=== PATIENT | male | born 1970 | race Caucasian/White ===

== ENCOUNTER → 2017-11-28 | Outpatient (CLI) | payer OTHER ==
[~2017-11-28] VITALS: Ht 175.3 cm; Wt 95.3 kg
[~2017-11-28] MED LIST: ALLERGY10 M1 PO; ATACAND HCT 321 EACH PO; ATACAND PO; AVINZA 90 MG CA90 MG PO; CARVEDILOL6.25 MG PO; CLARITIN-D 12 H1 TAB PO; CRESTOR40 MG PO; CRESTOR5 MG PO; ENDOCET 10-3251 EACH PO; FLONASE 0.05%50 MCG NASAL; LIPOFLAVONOID1 EACH PO; NEURONTIN 300M300 M2 PO; PERCOCET 10-321 EACH PO; PERCOCET 7.5-31 EACH PO; VERAMYST10 GM NS
--- NOTE | ~2017-11-28 | HPC ---
[facility] [place] [address] PAIN MANAGEMENT CONSULTATION Name: BILL RICKETTS Room #: REG WILFREDOKimberly Okeefe#: [id number] Admission: 11/28/17 Attend Phys: Hair Townsend MD Discharge: Date of : 68 Report #: [id number] THIS REPORT FOR: //name// CC: Hair Munson DATE OF SERVICE: 11/28/2017 CHIEF COMPLAINT: Pain in the low back area with numbness and fire in my left foot. HISTORY OF PRESENT ILLNESS: The patient is a 47-year-old gentleman who has returned to the pain clinic for treatment. The patient has had some problems with his low back. He has returned to his neurosurgeon. At this juncture, no truly good surgical procedure is available. His surgeon has requested that he continued to try to maintain his pain control as conservative as possible at this juncture. He has had a multitude of life experiences since we saw him about 8 years ago. He is . He has had some tragedies in his life where a number of people have . 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 He has had some health issues. He does have an aortic aneurysm about 4.2 cm, has had pain and discomfort involving his left foot, which radiates down into his foot and feels like fire. He has had an MRI with changes noting an anterolisthesis of about 11 mm. He has returned to the pain clinic for medications as well as for a procedure. Feels that an epidural steroid injection might be beneficial and would like to proceed with such. ALLERGIES: PENICILLIN. CURRENT MEDICATIONS: Flonase 0.05%, cetirizine 10 mg, ____ capsules. PAST MEDICAL HISTORY: Aortic aneurysm 4.2 cm, left foot pain with lumbar radiculopathy L4-L5 distribution, knee surgeries. 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 REVIEW OF SYSTEMS: Generally good health, eye injury, heart trouble. PAIN CLINIC ASSESSMENT: 1. History of osteoarthritis involving his right lower extremity. History of rheumatoid arthritis, not applicable. 2. Height 5 feet 9 inches, weight 210 pounds, BMI is 31. 3. Vital signs: Blood pressure 133/91, pulse 83, respiratory rate is 16, room air saturation 98%. 4. Pain intensity waxes and wanes between 5-6. 5. Fall history: The patient has not fallen. 6. Blood thinner. The patient is not on a blood thinning medication. [facility] [address] [place] [address] PAIN MANAGEMENT CONSULTATION Name: BILL RICKETTS Room #: REG [facility]#: [id number] Admission: 11/28/17 Attend Phys: Hair Townsend MD Discharge: Date of : 68 Report #: [id number] 7. Hypertension. The patient has been treated for hypertension in the past. 8. Opioid therapy greater than 6 weeks. The patient is not on opioid therapy. 9. Functional assessment tool . 10. Recreational drug use. The patient denies use of recreational drug use at this juncture. 11. Smoking. The patient has never smoked. 12. Alcohol: The patient denies frequent use of alcoholic beverages. PHYSICAL EXAMINATION: GENERAL: The patient is a well-developed, well-nourished white male. Appears his stated age. He is alert and oriented x 3. Affect is appropriate. HEENT: Normocephalic, atraumatic. Extraocular muscles intact. The patient has had some eye surgeries in the past. Mucous membranes are moist. NECK: Without JVD or adenopathy. Good range of motion. HEART: Regular rate. S1, S2. LUNGS: Clear to auscultation, lumbosacral without significant scoliosis, kyphosis or lordosis. The patient has pain and discomfort, which radiates down into the left leg within the L4-L5 distribution with a "fiery sensation." Notes some weakness. Has slight antalgic gait, goes from a sitting to a standing position with use of his hands. IMPRESSION: 1. Worsening of his lumbar radicular pain with pain radiating in the L5 distribution. 2. Aortic aneurysm 4.2 cm. 3. Left foot pain with lumbar radiculopathy L4-L5 distribution. 4. Knee surgeries. RECOMMENDATIONS: We discussed treatment options with the patient. Risks and benefits of an epidural steroid injection were discussed. Possible complications of the procedure were reviewed. The patient would like to proceed. At this juncture, the patient has not tried the gabapentin medication. We will start him on gabapentin 300 mg 1 p.o. t.i.d. He will slowly increase his medication as he is able to tolerate it. The patient will be given Percocet 7.5 mg 1 tablet p.o. b.i.d. He will return to the pain clinic and proceed an epidural steroid injection after his insurance company okays this. We would like to thank you for letting us participate in his care. We hope he continues to improve. By: [id number] Hair Townsend MD /samantha
[2017-11-28 09:12] VITALS: BP 133/91
== END ==
LOC: PAIN 07:29
DX: M54.16 Radiculopathy, lumbar region (principal); I71.9 Aortic aneurysm of unspecified site, without rupture; M79.672 Pain in left foot

== ENCOUNTER → 2018-01-09 | Outpatient (CLI) | payer OTHER ==
[~2018-01-09] VITALS: Ht 175.3 cm; Wt 97.2 kg
[~2018-01-09] MED LIST changes: +AMITRIPTYLINE H25 M2 PO; +NEURONTIN 300300 M1 PO; +ZANAFLEX4 MG PO
--- NOTE | ~2018-01-09 | HPC ---
[facility] [address] [address] PAIN MANAGEMENT CONSULTATION Name: BILL RICEKTTS Room #: REG JANAE Maldonado#: [id number] Admission: 01/09/18 Attend Phys: Hair Townsend MD Discharge: Date of : 68 Report #: [id number] THIS REPORT FOR: //name// CC: Hair Munson DATE OF SERVICE: 01/09/2018 PRIMARY CARE PHYSICIAN: Cecilio Munson MD HISTORY: Here for an epidural injection. FOLLOWUP HISTORY: The patient is a 47-year-old gentleman who has been followed in the pain clinic because of chronic pain. He has undergone an epidural steroid injection in the past. He has gleaned benefits from these. He does continue to have pain and discomfort, which is quite problematic. He has noticed worsening of his pain and rates it as about an 8/10. He has been working long hours, up to about 80 hours a week. Because of that, he has noted some worsening and crescendo of his pain. He has returned to the pain clinic for an injection. We have checked with his insurance. He has new insurance, but it is not in effect at this juncture. We will contact his insurance company at which time after they get the approval, we will proceed with an epidural steroid injection. These have provided greater than 50% improvement in his pain in the past. It involves the L4-L5 area on the left. He has found that this has been beneficial. Finds that his medications are helpful. They have not been as helpful as he would like. We will proceed with another script for oxycodone 10 mg 1 p.o. q.i.d. The patient and I have had a discussion regarding the use of opioid medications. He is aware of the possible complications of opioids, which could be dependence as well as less effectiveness secondary to tolerance. He would like to proceed with another injection as soon as his insurance company will allow. ALLERGIES: PENICILLIN. CURRENT MEDICATIONS: Flonase, cetirizine 10 mg, gabapentin 300 mg, takes 600 mg b.i.d., Zanaflex 4 mg t.i.d., multivitamin, Flonase 0.05% nasal spray. PAIN CLINIC ASSESSMENT/PQRS: 1. Osteoarthritis. The patient is not being treated for osteoarthritis. He has not been treated for rheumatoid arthritis. 2. Height 5 feet 9 inches, weight 214 pounds, BMI is 31.6. 3. Vital signs: Blood pressure 149/89, pulse 80, respiratory rate 16, room air saturation 97%. 4. Pain intensity 10. 5. Fall risk. The patient has not fallen in the last 3 months. 6. Blood thinner. The patient is not on a blood thinning medication. [address] [address] PAIN MANAGEMENT CONSULTATION Name: BILL RICKETTS [id number] Admission: 01/09/18 Attend Phys: Hair Townsend MD Discharge: Date of : 68 Report #: [id number] 7. Hypertension. The patient is being treated for hypertension. 8. Opioid therapy greater than 6 weeks. The patient is receiving medication from one source, the pain clinic. 9. Risk assessment tool, moderate risk status. 10. Functional assessment tool . 11. Recreational drug use. The patient denies use of recreational drugs. 12. Tobacco: The patient has never smoked. 13. Alcohol: The patient denies use of alcoholic beverages. PHYSICAL EXAMINATION: GENERAL: The patient is a well-developed, well-nourished white male. Appears his stated age. He is alert and oriented x 3. His affect is appropriate. Speech is fluent. HEENT: Normocephalic, atraumatic. Extraocular eye muscles intact. Sclerae nonicteric. Mucous membranes are moist. The patient has some disconjugate gaze secondary to the previous eye surgeries. NECK: JVD without adenopathy. Good range of motion. HEART: Regular rate. S1, S2. LUNGS: Clear to auscultation without rhonchi or rales. MUSCULOSKELETAL: Without significant scoliosis, kyphosis or lordosis. The patient does have some pain and discomfort, which is radiating down into his left leg in the L4-L5 distribution and describes as a fiery sensation down into his feet. The patient has some weakness in the left leg, walks with an antalgic gait because of the pain. Notes that the pain is worse when he goes from a sitting to a standing position and uses his hands to go from a sitting position to a standing position from the chair. IMPRESSION: 1. Worsening of lumbar radicular pain with radiation down the L5 distribution. 2. Aortic aneurysm, 4.2 being watched by his physician. 3. Left foot and lumbar radiculopathy, L4-L5. 4. Knee surgeries. RECOMMENDATIONS: We discussed treatment options with the patient. Risks and benefits of an epidural steroid injection were again reviewed. Possible complications were discussed. The patient has some new insurance company and carrier. At this juncture, he is waiting for approval. After he gets approval from the company, he will then undergo an epidural steroid injection. The patient gleans greater than 50% improvement after the injection. A script for oxycodone 10 mg 1 p.o. q.i.d. has been written. We would like to thank you for letting us participate in his care. We hope he continues to improve. <ELECTRONICALLY SIGNED> By: Hair Townsend MD 01/21/18 [id number] Hair Townsend MD /[facility]
[2018-01-09 10:56] VITALS: BP 149/89
== END ==
LOC: PAIN 06:55
DX: M54.16 Radiculopathy, lumbar region (principal); I71.9 Aortic aneurysm of unspecified site, without rupture; M79.672 Pain in left foot; Z47.1 Aftercare following joint replacement surgery; Z79.899 Other long term (current) drug therapy

== ENCOUNTER → 2018-01-23 | Outpatient (CLI) | payer OTHER ==
[~2018-01-23] VITALS: Ht 175.3 cm; Wt 95.3 kg
[2018-01-23 14:03] VITALS: BP 133/85
== END | disposition home or self-care (01) ==
LOC: PAIN 07:20
DX: M54.16 Radiculopathy, lumbar region (principal); G89.29 Other chronic pain; Z88.0 Allergy status to penicillin; Z79.899 Other long term (current) drug therapy

== ENCOUNTER → 2018-02-15 | Outpatient (CLI) | payer OTHER ==
[~2018-02-15] VITALS: Ht 175.3 cm; Wt 95.5 kg
--- NOTE | ~2018-02-15 | HPC ---
[facility] [place] [address] [place] [address] PAIN MANAGEMENT CONSULTATION Name: BILL RICKETTS Room #: REG JNAAE Jennifer.#: [id number] Admission: 02/15/18 Attend Phys: Hair Townsend MD Discharge: Date of : 68 Report #: [id number] THIS REPORT FOR: //name// CC: Hair Munson DATE OF SERVICE: 02/15/2018 PRIMARY CARE PHYSICIAN: Cecilio Munson MD FOLLOWUP. Pain is improved since the last injection. HISTORY: The patient is a 47-year-old gentleman who has been followed in the pain clinic because of lumbar radiculopathy. He has undergone epidural steroid injections. He received some benefit from the first injection and the second injection, which he received at his last visit, has been more helpful. He is having less pain and rates his pain at this juncture as a 4/5. There were no complications from the injections. Does still have some pain radiating down his left leg into his foot and has some burning discomfort involving the left leg and foot. He was being treated with gabapentin. We did try Gralise (slow release medication of gabapentin), but the patient did not find significant benefit from that. He would like to resume his use of traditional gabapentin. He has continued to exercises as he is able to tolerate it. Denies any bowel or bladder dysfunction. ALLERGIES: PENICILLIN. CURRENT MEDICATIONS: Flonase, cetirizine 10 mg, gabapentin 300 mg a.m., 600 mg t.i.d., Flexeril, tizanidine 4 mg t.i.d., multivitamin, Flonase 0.5 mg nasal spray. PAIN CLINIC ASSESSMENT/PQRS: 1. Osteoarthritis. The patient has not been treated for rheumatoid arthritis. 2. Height 5 feet 9 inches, weight 210 pounds, BMI is 31.1. 3. Vital signs: Blood pressure 132/89, pulse 81, respiratory rate 18, room air saturation 95%. 4. Pain intensity 4/5 out of 10. 5. Fall risk. The patient has not fallen in the last 3 months. 6. Blood thinner. The patient is not on a blood thinning medication. 7. Hypertension. The patient is not being treated for hypertension. 8. Opioid greater than 6 weeks. The patient is receiving his medication from one source, the pain clinic. 9. Risk assessment tool, moderate risk for opioid use 09/12. 10. Functional assessment tool . 11. Recreational drug use. The patient denies use of recreational drugs. 12. Tobacco. [place] [address] PAIN MANAGEMENT CONSULTATION Name: BILL RICKETTS Room #: REG [facility] Emerson.#: [id number] Admission: 02/15/18 Attend Phys: Hair Townsend MD Discharge: Date of : 68 Report #: [id number] 13. Alcohol: The patient denies use of alcoholic beverages. PHYSICAL EXAMINATION: GENERAL: The patient is a well-developed, well-nourished white male. Appears his stated age. He is alert and oriented x 3. His affect is appropriate. Speech is fluent. HEENT: Normocephalic, atraumatic. Extraocular eye muscles intact. Sclerae nonicteric. Mucous membranes are moist. NECK: Without JVD or adenopathy, good range of motion. HEART: Regular rate. S1, S2. LUNGS: Clear to auscultation without rhonchi or rales. MUSCULOSKELETAL: Without significant scoliosis, kyphosis or lordosis. The patient does have some pain and discomfort in his left leg that radiates down the L4-L5 distribution with a fiery sensation in his foot and down into his toe. Notes some weakness in his left leg. Continues to have some slight antalgic walk. Gait has improved since the last injection. The patient uses hands to go from sitting to a standing position from the chair. IMPRESSION: 1. Lumbar radiculopathy in the L4-L5 distribution. 2. Aortic aneurysm 4.2 cm being actively watched and monitored by his physician. 3. Left foot lumbar radicular pain in the L4-L5 distribution. 4. Knee surgeries. RECOMMENDATIONS: We discussed treatment options with the patient. At this juncture, we will continue with his current medical regimen. A script for medications of gabapentin 300 mg 1 p.o. t.i.d. has been written. The patient will take an additional tablet in the morning for a total of 600, 300 and 300, amitriptyline 25 mg 2 tablets p.o. at bedtime, tizanidine 4 mg t.i.d., oxycodone 10/325 one p.o. q.6 hours p.r.n., total of 75 tablets have been dispensed. The patient will call us if he has any concerns. We would like to thank you for letting us participate in his care. We hope he continues to improve. By: [id number] Hair Townsend MD /ALAN
[2018-02-15 09:45] VITALS: BP 132/89
== END ==
LOC: PAIN 06:48
DX: M54.16 Radiculopathy, lumbar region (principal); I71.9 Aortic aneurysm of unspecified site, without rupture; Z96.659 Presence of unspecified artificial knee joint

== ENCOUNTER → 2018-03-15 | Outpatient (CLI) | payer OTHER ==
[~2018-03-15] VITALS: Ht 175.3 cm; Wt 92.8 kg
--- NOTE | ~2018-03-15 | HPC ---
[facility] [address] [place] [address] PAIN MANAGEMENT CONSULTATION Name: BILL RICKETTS Room #: REG JANAE CaseJarethKirkJareth#: [id number] Admission: 03/15/18 Attend Phys: Hair Townsend MD Discharge: Date of : 68 Report #: [id number] THIS REPORT FOR: //name// CC: Hair Munson DATE OF SERVICE: 03/15/2018 CHIEF COMPLAINT: Here for medication renewal, still having pain in the left hip and down into the foot. HISTORY OF PRESENT ILLNESS: The patient is a 47-year-old gentleman who has been followed in the pain clinic because of onset of pain and discomfort. He has had a history of lumbar radiculopathy in the past. A few months ago, he noticed some worsening of pain and this has been quite problematic. He has returned today for renewal of his medication. He has found that epidural steroid injections as well as gabapentin, Percocet and Elavil are helpful. He would like to have these medications renewed. ALLERGIES: PENICILLIN. CURRENT MEDICATIONS: Flonase, cetirizine 10 mg, gabapentin 300 mg, 600 mg b.i.d., Zanaflex 4 mg t.i.d., multivitamin, Flonase spray, Percocet 10/325 one p.o. every 6 hours total 75 tablets have been dispensed. PAIN CLINIC ASSESSMENT/PQRS: 1. Osteoarthritis. The patient is not being treated for osteoarthritis. He has not been treated for rheumatoid arthritis. 2. Height 5 feet 9 inches, weight 204 pounds, BMI is 32. 3. Vital signs: Blood pressure 141/85, pulse 83, respiratory rate 17, room air saturation 95%. 4. Pain intensity 09/16. 5. Fall risk. The patient has not fallen in the last 3 months. 6. Blood thinner. The patient is not on a blood thinning medication. 7. History of hypertension. The patient is being treated for hypertension. 8. Opioids greater than 6 weeks. The patient is getting medications from the pain clinic. 9. Risk assessment, moderate risk 6. 10. Functional assessment tool . 11. Recreational drug use: The patient denies. 12. Tobacco: The patient has never smoked. 13. Alcohol: The patient denies use of alcoholic beverages. PHYSICAL EXAMINATION: GENERAL: The patient is a well-developed, well-nourished white male. Appears his stated age. He is alert and oriented x 3. [facility] [address] [place] [address] PAIN MANAGEMENT CONSULTATION Name: BLIL RICKETTS Room #: REG [facility] ManpreetKirk#: [id number] Admission: 03/15/18 Attend Phys: Hair Townsend MD Discharge: Date of : 68 Report #: [id number] HEENT: Normocephalic, atraumatic. Extraocular eye muscles intact. Sclerae nonicteric. Mucous membranes are moist. NECK: Without JVD or adenopathy. Good range of motion. HEART: Regular rate. S1, S2. LUNGS: Clear to auscultation without rhonchi or rales. MUSCULOSKELETAL: Without significant scoliosis, kyphosis or lordosis. The patient does have some pain and discomfort, which is radiating down into his left leg in the L4-L5 distribution. It is somewhat improved from the last visit, but still problematic. The patient still walks with slight antalgic gait. IMPRESSION: 1. Lumbar radiculopathy in the L5 distribution. 2. Aortic aneurysm 4.2 cm being watched by the physician. 3. Left foot and lumbar radicular pain, L4-L5 distribution. 4. Knee surgeries. RECOMMENDATIONS: We discussed treatment option with the patient. At this juncture, we will rewrite his medications. The patient has been given a script for gabapentin 300 mg one p.o. a total of taken t.i.d. 120 tablets have been provided. Oxycodone 10 mg 1 p.o. every 4-6 hours p.r.n., total of 75 provided, amitriptyline 25 mg 2 p.o. at bedtime. The patient will call us if he has any complaints. We would like to thank you for letting us participate in his care. We hope he continues to improve. By: [id number] Hair Townsend MD /samantha
[2018-03-15 09:38] VITALS: BP 141/85
== END ==
LOC: PAIN 09:11
DX: M25.552 Pain in left hip (principal); M79.605 Pain in left leg; M25.561 Pain in right knee; M25.551 Pain in right hip; G89.29 Other chronic pain; Z79.899 Other long term (current) drug therapy

== ENCOUNTER → 2018-04-05 | Outpatient (CLI) | payer OTHER ==
[~2018-04-05] VITALS: Ht 175.3 cm; Wt 92.7 kg
[2018-04-05 11:17] VITALS: BP 122/92
--- NOTE | 2018-04-05 11:22 | NUR ---
Pain Clinic Assessment: 1. History of Osteoarthritis: Right Lower Extremity History of Rheumatoid Arthritis: Not Applicable 2. Height: 5 ft. 9 in. 175.3 cm. Weight: 204.4 lb. oz. 92.715 kg. Patient's BMI: 30.2 3. Vital Signs: BP: 122/92 Pulse: 67 Resp: 16 Temp: 02 Sat: 97 ECG Mon: 4. Pain Intensity: 6 5. Fall Risk: Dizziness: N Needs help standing or walking: N Fallen in the last 3 months: N Fall risk comments: 6. Patient on Blood Thinner: None 7. History of Hypertension: Y 8. Opioid Therapy greater than 6 weeks: Y Opiate Contract Signed: 12/26/17 9. Risk Assessment Tool Provided: MOD-6 10. Functional Assessment Tool: 11. Recreational Drug Use: Never Drug Type: Tobacco Use: Never Smoker Tobacco Type: Amount or Packs/day: How Many Years: Alcohol Use: No Frequency: Quant:
== END ==
LOC: PAIN 08:07
DX: M25.552 Pain in left hip (principal); M25.561 Pain in right knee; M79.651 Pain in right thigh; M79.605 Pain in left leg; G89.29 Other chronic pain; Z79.891 Long term (current) use of opiate analgesic

== ENCOUNTER → 2018-07-03 | Outpatient (CLI) | payer OTHER ==
[~2018-07-03] VITALS: Ht 175.3 cm; Wt 97.1 kg
[~2018-07-03] MED LIST changes: +AMITRIPTYLINE H75 M1 PO; +MEDROLDOSEPACK PO; +TOPROL XL25 MG PO
[2018-07-03 08:46] VITALS: BP 147/98
--- NOTE | 2018-07-03 08:51 | NUR ---
Pain Clinic Assessment: 1. History of Osteoarthritis: Right Lower Extremity RIGHT KNEE History of Rheumatoid Arthritis: Not Applicable 2. Height: 5 ft. 9 in. 175.3 cm. Weight: 214.0 lb. oz. 97.070 kg. Patient's BMI: 31.6 3. Vital Signs: BP: 147/98 Pulse: 81 Resp: 16 Temp: 02 Sat: 97 ECG Mon: 4. Pain Intensity: 4 5. Fall Risk: Dizziness: N Needs help standing or walking: N Fallen in the last 3 months: N Fall risk comments: 6. Patient on Blood Thinner: None 7. History of Hypertension: Y 8. Opioid Therapy greater than 6 weeks: Y Opiate Contract Signed: 12/26/17 9. Risk Assessment Tool Provided: MOD-6 10. Functional Assessment Tool: 11. Recreational Drug Use: Never Drug Type: Tobacco Use: Never Smoker Tobacco Type: Amount or Packs/day: How Many Years: Alcohol Use: No Frequency: Quant:
--- NOTE | 2018-08-02 00:33 | HPC ---
[facility] [address] [address] PAIN MANAGEMENT CONSULTATION Name: BILL RICKETTS Room #: REG WILFREDOKimberly Rodriguez.#: [id number] Admission: 07/03/18 ������������������ Attend Phys: Hair Townsend MD Discharge: ������������������ Date of : 68 Report #: [id number] THIS REPORT FOR: //name// CC: Hair Munson DATE OF SERVICE: 07/03/2018 FOLLOWUP COMPLAINT: Here for medication renewal. FOLLOWUP HISTORY: The patient is a 48-year-old gentleman who has been followed in the Pain Clinic. He suffers from chronic pain involving his low back. He has undergone a series of epidural steroid injections. There has been some improvement. He still has pain, which is still problematic. He feels that his medications are beneficial. He is having thoughts of relocating. He is anticipating that taking on a new job with [employer] in [facility] in a poor state area. Overall, he feels that his medications are working reasonably well. He would like to have them renewed. He states he has taken the medication as prescribed. He has pain and discomfort, which radiates down into his lumbar area with pain and discomfort on the left leg and hip. ALLERGIES: PENICILLIN. MEDICATIONS: Flonase, cetirizine 10 mg, gabapentin 600 mg b.i.d., Flexeril 4 mg t.i.d., multivitamin, Flonase spray, Percocet 10/325 one p.o. 4-6 hours p.r.n. pain, total of 75 tablets per month. PAIN CLINIC ASSESSMENT/PQRS: 1. Osteoarthritis. The patient has not been treated for osteoarthritis. He is not being treated for rheumatoid arthritis. 2. Height 5 feet 10 inches, weight 214 pounds, BMI is 31.6. 3. Vital signs: Blood pressure 147/98, pulse 81, respiratory rate 16, room air saturation 97%. 4. Pain intensity 07/17. 5. Fall risk. The patient has not fallen in the last 3 months. 6. Blood thinner. The patient is not on a blood thinning medication. 7. Hypertension. The patient has not being treated for hypertension. 8. Opioids greater than 6 weeks. The patient is receiving medications through the Pain Clinic for opioids. 9. Risk assessment tool, moderate use. 10. Functional assessment tool . 11. Recreational drugs. The patient denies use of recreational drugs. 12. Tobacco: The patient has never smoked. 13. Alcohol: The patient denies frequent use of alcoholic beverages. PHYSICAL EXAMINATION: [facility] [address] [address] PAIN MANAGEMENT CONSULTATION Name: BILL RICKETTS Room #: REG [facility]#: [id number] Admission: 07/03/18 ������������������ Attend Phys: Hair Townsend MD Discharge: ������������������ Date of : 68 Report #: [id number] GENERAL: The patient is a well-developed, well-nourished white male. Appears his stated age. He is alert and oriented x 3. Affect is appropriate. Speech is fluent. HEENT: Normocephalic, atraumatic. Extraocular eye muscles intact. Sclerae nonicteric. The patient has somewhat disconjugate gaze. LUNGS: Clear to auscultation without rhonchi or rales. MUSCULOSKELETAL: Without significant scoliosis, kyphosis or lordosis. The patient has pain and discomfort in the L4-L5 dermatomal distribution as well as some L5-S1 dermatomal distribution in the past. IMPRESSION: 1. Lumbar radiculopathy, L5-S1. 2. History aortic aneurysm 4.2 cm watch by his physician. 3. Left foot pain with lumbar radicular pain, L5-S1 with burning sensation. 4. Knee surgeries. 5. Right knee pain. RECOMMENDATION: We discussed treatment options with the patient. At this juncture, we will continue with his Percocet. A script for his medication 75 tablets per month has been written. The patient will also try the amitriptyline and note its efficacy. He will continue with these medications to help control this pain. We will also continue with gabapentin 300 mg 1 p.o. t.i.d. We would like to thank you for letting us participate in his care. A script for his medications has been written. ��������������������������������������������� <ELECTRONICALLY SIGNED> ���������������������������������������� By: Hair Townsend MD ��������������������������������������������� 08/02/18 0033 [id number] 0528 Hair Townsend MD /nt
== END ==
LOC: PAIN 06:46
DX: Z76.0 Encounter for issue of repeat prescription (principal); M54.17 Radiculopathy, lumbosacral region; Z88.0 Allergy status to penicillin; Z79.899 Other long term (current) drug therapy

== ENCOUNTER → 2018-07-31 | Outpatient (CLI) | payer OTHER ==
[~2018-07-31] VITALS: Ht 175.3 cm; Wt 98.9 kg
[~2018-07-31] MED LIST changes: -TOPROL XL25 MG PO
[2018-07-31 09:15] VITALS: BP 153/93
--- NOTE | 2018-07-31 09:18 | NUR ---
Pain Clinic Assessment: 1. History of Osteoarthritis: Right Lower Extremity RIGHT KNEE History of Rheumatoid Arthritis: Not Applicable 2. Height: 5 ft. 9 in. 175.3 cm. Weight: 218.0 lb. oz. 98.884 kg. Patient's BMI: 32.2 3. Vital Signs: BP: 153/93 Pulse: 81 Resp: 16 Temp: 02 Sat: 98 ECG Mon: 4. Pain Intensity: 5 5. Fall Risk: Dizziness: N Needs help standing or walking: N Fallen in the last 3 months: N Fall risk comments: 6. Patient on Blood Thinner: None 7. History of Hypertension: Y 8. Opioid Therapy greater than 6 weeks: Y Opiate Contract Signed: 12/26/17 9. Risk Assessment Tool Provided: MOD-6 10. Functional Assessment Tool: 11. Recreational Drug Use: Never Drug Type: Tobacco Use: Never Smoker Tobacco Type: Amount or Packs/day: How Many Years: Alcohol Use: No Frequency: Quant:
--- NOTE | 2018-08-01 14:48 | HPC ---
[facility] [address] [address] PAIN MANAGEMENT CONSULTATION Name: BILL RICKETTS Room #: REG JANAE Okeefe#: [id number] Admission: 07/31/18 ������������������ Attend Phys: Luzmaria Cuello Discharge: ������������������ Date of : 68 Report #: [id number] THIS REPORT FOR: //name// CC: Luzmaria Munson DATE OF SERVICE: 07/31/2018 CHIEF COMPLAINT: Chronic low back pain. HISTORY OF PRESENT ILLNESS: Followup visit for this 48-year-old pleasant gentleman who returns for his chronic low back pain. He tells me that his pain score is a 5 out of 10 today. He said he has been doing reasonably well. He is still looking for a job, so he continues his unemployment. He tells me that he is willing to move anywhere in the country. 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 He tells me if he does move, he will let us know because of his medications. He knows it will be harder to find a physician that will take him on when he moves, if that is necessary. He is complaining of left hip and left leg pain. This is a achy, burning, cramping feeling; worse when he is on his feet and standing; better when he is resting or sitting and the medications are very helpful. He denies any constipation or daytime sleepiness. He said that tizanidine is very helpful in allowing him to sleep at night. ALLERGIES: PENICILLIN. CURRENT MEDICATIONS: Percocet 10/325 p.r.n., gabapentin 300 mg t.i.d., amitriptyline 75 mg at bedtime, tizanidine 4 mg p.r.n., Flonase as needed and allergy medicine p.r.n. PQRS: 1. He is not being treated for osteoarthritis or rheumatoid arthritis. 2. Height is 5 feet 9 inches, weight is 218 and BMI is 32. 3. Vital signs 153/93, pulse is 81, respirations 16 and oxygen sat is 98. 4. Pain score is 5 out of 10. 5. Denies dizziness. Does not need help walking or standing. Has not fallen in the last 3 months. 6. The patient is not on any blood thinners. He does have a history of hypertension. 7. Opioid therapy is greater than 6 weeks; therefore, an opioid signed contract is on the chart. 8. Risk assessment tool is moderate, functional assessment is 20 out of 70. 9. Recreational drug use, he denies. He does not smoke and does not drink alcohol. We did check the prescription monitoring system. The patient is filling appropriately from Dr. Townsend. He does safeguard his medications. We will need to check a drug screen in the near future on this patient. [address] [address] PAIN MANAGEMENT CONSULTATION Name: BILL RICKETTS Room #: REG JANAE Okeefe#: [id number] Admission: 07/31/18 ������������������ Attend Phys: Luzmaria Cuello Discharge: ������������������ Date of : 68 Report #: [id number] PHYSICAL EXAMINATION: GENERAL: This is a well-developed, well-nourished white gentleman, who appears his stated age. He is alert and oriented. His affect is appropriate. HEENT: Normocephalic, atraumatic. Extraocular eye muscles are intact. Mucous membranes are moist. MUSCULOSKELETAL: Without significant lordosis or kyphosis. The patient complains of pain across his lower back that radiates into his hip and down into his left leg following the L4-L5 and L5-S1 dermatomal distribution. IMPRESSION: 1. Lumbar radiculopathy, L5-S1 and L4-L5. 2. History of aortic aneurysm. 3. Previous knee surgeries. 4. Management of high-risk medications under the terms of written opioid agreement. We reviewed the fact that opiate medications are being used to provide analgesia adequate to support activities of daily living, not attempting to achieve a specific pain score on the 0-10 Visual Analog Scale. The current opiate medications are providing sufficient analgesia to allow the patient to participate in activities of daily living. The patient is not exhibiting any aberrant behavior suggestive of drug diversion. The patient is not having any adverse reactions to medications. The patient is not suffering from daytime somnolence or mental acuity changes. The patient is managing opiate-induced constipation with appropriate rhfd-wjs-fkkfhli agents and dietary considerations. The patient was counseled on concern for caution with operating a motor vehicle while using opiate medications. A physical exam was performed and the patient's functional status was evaluated. All patients with back pain were advised against the bed rest greater than 4 days and were advised to return to normal activities. Pain score assessment was noted and the treatment plan was reviewed with the patient. All current medications, both prescribed and OTC were reviewed and reconciled on the electronic medical record. Tobacco screening was accomplished and smoking cessation was advised when indicated. BMI was noted and diet/exercise modification was recommended for all patients following outside normal parameters. I reviewed with the patient today their responsibilities to safeguard prescription medications, reviewed their responsibility to utilize medications only as prescribed by the physician. They are to seek and receive pain medications only from 1 physician group ([facility]). They are to use 1 pharmacy and keep the clinic informed if they change pharmacies. Their responsibilities include making followup visits in a timely fashion and to avoid abrupt discontinuation of medication usage. Their responsibilities further [facility] [address] [place] [address] PAIN MANAGEMENT CONSULTATION Name: BILL RICKETTS Room #: REG JANAE Okeefe#: [id number] Admission: 07/31/18 ������������������ Attend Phys: Luzmaria Cuello Discharge: ������������������ Date of : 68 Report #: [id number] include bringing their medications (bottles from the pharmacy with residual pills) to the visit for possible confirmation of pill counts and the patient understands it is their responsibility to submit to random drug screens to ensure both that the medications prescribed are present, and that no other controlled substances are present. All prescriptions provided today were generated electronically. PLAN: 1. We discussed treatment options with the patient today. The patient would like refill of his current medications that have been very helpful in controlling his pain. Prescription was given today for tizanidine 4 mg t.i.d., #270, which is a 3-month supply; amitriptyline 75 mg at bedtime, #90, which is also a 3-month supply and oxycodone 10/325 q. 6 hours p.r.n., 75 pills given. 2. The patient seen in collaboration today with Dr. Javier Townsend. The patient will be seen in 1-month time. Appointment made. ��������������������������������������������� <ELECTRONICALLY SIGNED> ���������������������������������������� By: Luzmaria Cuello ��������������������������������������������� 08/01/18 1448 [id number] [id number] Luzmaria Cuello /samantha
== END ==
LOC: PAIN 07:06
DX: G89.29 Other chronic pain (principal); M54.16 Radiculopathy, lumbar region; I10 Essential (primary) hypertension; Z86.79 Personal history of other diseases of the circulatory system; Z88.0 Allergy status to penicillin; Z79.899 Other long term (current) drug therapy; Z79.891 Long term (current) use of opiate analgesic

== ENCOUNTER → 2018-08-28 | Outpatient (CLI) | payer OTHER ==
[~2018-08-28] VITALS: Ht 175.3 cm; Wt 100.2 kg
[~2018-08-28] MED LIST changes: +TOPROL XL25 MG PO
[2018-08-28 09:40] VITALS: BP 147/97
--- NOTE | 2018-08-28 09:48 | NUR ---
Pain Clinic Assessment: 1. History of Osteoarthritis: Right Lower Extremity RIGHT KNEE History of Rheumatoid Arthritis: Not Applicable 2. Height: 5 ft. 9 in. 175.3 cm. Weight: 221.0 lb. oz. 100.245 kg. Patient's BMI: 32.6 3. Vital Signs: BP: 147/97 Pulse: 56 Resp: 16 Temp: 02 Sat: 100 ECG Mon: 4. Pain Intensity: 5 5. Fall Risk: Dizziness: N Needs help standing or walking: N Fallen in the last 3 months: N Fall risk comments: 6. Patient on Blood Thinner: None 7. History of Hypertension: Y 8. Opioid Therapy greater than 6 weeks: Y Opiate Contract Signed: 12/26/17 9. Risk Assessment Tool Provided: MOD-6 10. Functional Assessment Tool: 11. Recreational Drug Use: Never Drug Type: Tobacco Use: Never Smoker Tobacco Type: Amount or Packs/day: How Many Years: Alcohol Use: No Frequency: Quant:
--- NOTE | 2018-08-29 08:05 | HPC ---
[facility] [address] [address] PAIN MANAGEMENT CONSULTATION Name: BILL RICKETTS Room #: REG JANAE Okeefe#: [id number] Admission: 08/28/18 ������������������ Attend Phys: Luzmaria Cuello Discharge: ������������������ Date of : 68 Report #: [id number] THIS REPORT FOR: //name// CC: Luzmaria Munson DATE OF SERVICE: 08/28/2018 CHIEF COMPLAINT: Chronic low back pain and bilateral leg pain. HISTORY OF PRESENT ILLNESS: This is a pleasant 48-year-old gentleman who returns to the pain clinic today for his ongoing low back pain and bilateral leg pain. He tells me today, most of his pain is located in his left hip that radiates all the way to his toes, and his right knee has been bothering him from a past surgery, injury. He tells me his pain score is 5/10, it is mostly achy, burning, numbness pain; worse when he is having prolonged standing episodes. He tells me resting, sitting and going to the gym have been helpful. He feels like he does not have any side effects from his medication as far as constipation or daytime sleepiness. He tells me he is doing quite well with his Percocet and other medications. The patient is quite depressed today telling me that his divorce was final last week and he is still struggling to find a job. He is upset that he thought he had a job lined up and that fell through at the last minute and he was getting ready to move, so he is having some depression and anger issues today regarding the divorce and the job search. ALLERGIES: PENICILLIN. MEDICATIONS: Toprol-XL 25 mg daily, amitriptyline 75 mg at bedtime, tizanidine 4 mg 3 times a day p.r.n., gabapentin 300 mg tablets 3 times a day, oxycodone 10/325 p.r.n., Flonase and allergy medications. PQRS: 1. The patient is being treated for osteoarthritis in his right lower extremity and right knee. He denies any rheumatoid arthritis. 2. Height is 5 feet 9 inches, weight is 221. BMI is 32. 3. Vital signs: Blood pressure 147/97, pulse is 56, respirations 16, oxygen sat is 100%. 4. Pain score is 5/10. 5. Denies dizziness. Does not need help walking or standing. He has not fallen in the last 3 months. 6. The patient is not on any blood thinners. He does take medication for hypertension. 7. His opioid therapy is greater than 6 weeks; therefore, an opioid signed contract is on the chart. [address] [address] PAIN MANAGEMENT CONSULTATION Name: BILL RICKETTS Room #: REG JANAE Okeefe#: [id number] Admission: 08/28/18 ������������������ Attend Phys: Luzmaria Cuello Discharge: ������������������ Date of : 68 Report #: [id number] 8. His risk assessment is moderate and his functional assessment is 20/70. 9. Recreational drug use, he denies. He is not a smoker and does not drink alcohol. We did check the prescription monitoring system. The patient is due to be filled today for his medications, he is on time. He tells me he safeguards his medications at all times. PHYSICAL EXAMINATION: GENERAL: This is a well-developed, well-nourished white gentleman who appears his stated age. Placing his pain score today at 5/10. He is alert and orientated and his affect is appropriate, though angry at times over situational things. HEENT: Normocephalic, atraumatic. Extraocular eye muscles are intact. Mucous membranes are moist. MUSCULOSKELETAL: Without significant lordosis or kyphosis or scoliosis. He complains of pain that radiates from his lower back into his left hip that continues to radiate into his foot following the L5-S1 dermatomal distribution, also complains of right knee pain today. His lower extremity strength judged to be 5/5 in all major muscle groups symmetrical in tone. IMPRESSION: 1. Lumbar radiculopathy, L4-L5 and L5-S1. 2. Previous knee surgeries. 3. Osteoarthritis. 4. Management of high-risk medications under terms of written an opioid agreement. We reviewed the fact that opiate medications are being used to provide analgesia adequate to support activities of daily living, not attempting to achieve a specific pain score on the 0-10 Visual Analog Scale. The current opiate medications are providing sufficient analgesia to allow the patient to participate in activities of daily living. The patient is not exhibiting any aberrant behavior suggestive of drug diversion. The patient is not having any adverse reactions to medications. The patient is not suffering from daytime somnolence or mental acuity changes. The patient is managing opiate-induced constipation with appropriate [id number] agents and dietary considerations. The patient was counseled on concern for caution with operating a motor vehicle while using opiate medications. A physical exam was performed and the patient's functional status was evaluated. All patients with back pain were advised against the bed rest greater than 4 days and were advised to return to normal activities. Pain score assessment was noted and the treatment plan was reviewed with the patient. All current medications, both prescribed and OTC were reviewed and reconciled on the electronic medical record. Tobacco screening was accomplished and smoking [address] [address] PAIN MANAGEMENT CONSULTATION Name: BILL RICKETTS Room #: REG [facility]..#: [id number] Admission: 08/28/18 ������������������ Attend Phys: Luzmaria Cuello Discharge: ������������������ Date of : 68 Report #: [id number] cessation was advised when indicated. BMI was noted and diet/exercise modification was recommended for all patients following outside normal parameters. I reviewed with the patient today their responsibilities to safeguard prescription medications, reviewed their responsibility to utilize medications only as prescribed by the physician. They are to seek and receive pain medications only from 1 physician group ( [facility]). They are to use 1 pharmacy and keep the clinic informed if they change pharmacies. Their responsibilities include making followup visits in a timely fashion and to avoid abrupt discontinuation of medication usage. Their responsibilities further include bringing their medications (bottles from the pharmacy with residual pills) to the visit for possible confirmation of pill counts and the patient understands it is their responsibility to submit to random drug screens to ensure both that the medications prescribed are present, and that no other controlled substances are present. All prescriptions provided today were generated electronically. PLAN: 1. We discussed treatment options with the patient today. The patient feels like his Percocet is helpful and would like to continue that. Prescriptions given today for 10/325 p.o. q. 6 hours #75. No other refills are needed this month for his tizanidine, amitriptyline and gabapentin since we have given him a 90-day supply at his last visit. 2. We did talk about job opportunities and social issues that he is having at home and encouraged the patient that hopefully time will present opportunities to help him. Discussed possible relocation if need be for a new job. 3. The patient is seen today with Dr. Javier Townsend who collaborated care today. ��������������������������������������������� <ELECTRONICALLY SIGNED> ���������������������������������������� By: Luzmaria Cuello ��������������������������������������������� 08/29/18 0805 [id number] Luzmaria Cuello /nt
== END ==
LOC: PAIN 06:47
DX: M54.17 Radiculopathy, lumbosacral region (principal); M54.16 Radiculopathy, lumbar region; M19.90 Unspecified osteoarthritis, unspecified site; Z79.899 Other long term (current) drug therapy; Z79.891 Long term (current) use of opiate analgesic; Z88.0 Allergy status to penicillin; Z96.659 Presence of unspecified artificial knee joint

== ENCOUNTER → 2018-09-25 | Outpatient (CLI) | payer OTHER ==
[~2018-09-25] VITALS: Ht 175.3 cm; Wt 98.2 kg
[2018-09-25 09:27] VITALS: BP 134/89
--- NOTE | 2018-09-25 09:38 | NUR ---
Pain Clinic Assessment: 1. History of Osteoarthritis: Right Lower Extremity RIGHT KNEE History of Rheumatoid Arthritis: Not Applicable 2. Height: 5 ft. 9 in. 175.3 cm. Weight: 216.6 lb. oz. 98.249 kg. Patient's BMI: 32.0 3. Vital Signs: BP: 134/89 Pulse: 74 Resp: 16 Temp: 02 Sat: 97 ECG Mon: 4. Pain Intensity: 6 5. Fall Risk: Dizziness: N Needs help standing or walking: N Fallen in the last 3 months: N Fall risk comments: 6. Patient on Blood Thinner: None 7. History of Hypertension: Y 8. Opioid Therapy greater than 6 weeks: Y Opiate Contract Signed: 12/26/17 9. Risk Assessment Tool Provided: MOD-6 10. Functional Assessment Tool: 11. Recreational Drug Use: Never Drug Type: Tobacco Use: Never Smoker Tobacco Type: Amount or Packs/day: How Many Years: Alcohol Use: No Frequency: Quant:
--- NOTE | 2018-09-26 07:15 | HPC ---
[facility] [place] [address] PAIN MANAGEMENT CONSULTATION Name: BILL RICKETTS Room #: REG JANAE Okeefe#: [id number] Admission: 09/25/18 ������������������ Attend Phys: Luzmaria Cuello Discharge: ������������������ Date of : 68 Report #: [id number] THIS REPORT FOR: //name// CC: Luzmaria Munson DATE OF SERVICE: 09/25/2018 CHIEF COMPLAINT: Chronic low back pain and bilateral leg pain. HISTORY OF PRESENT ILLNESS: This is a pleasant 48-year-old gentleman who returned to the pain clinic today for refill of his medications. He tells me he had some rough days the past month and did take a few extra pain pills; therefore, he ran out this weekend and has been without for a few days. He feels like he did not go through with any withdrawal symptoms. His pain score is a 6/10. He is due for his medication refill today, so he did not call and ask for more medicine, he just dealt with his pain. He tells me his pain is mostly in his right hip and to his right knee, numbness, then his pain is in his left hip, radiates down his left leg to his foot. Pain score 6/10, worse with on his feet for a long time, better with resting and medication. He tells me he has no problems with constipation or daytime sleepiness. The patient tells me he does have several interviews set up. 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 He does have one in [place] that he is going to drive and see the sites on his way to this job interview since he has time to do that. The patient will be back in time for his appointment in October. ALLERGIES: PENICILLIN. CURRENT LIST OF MEDICATIONS: Oxycodone 10/325 p.r.n., metoprolol 25 mg daily, Elavil 75 mg at bedtime, Zanaflex 4 mg three times a day p.r.n., Neurontin 300 mg t.i.d., Flonase and allergy medicine. PQRS: 1. He is being treated for osteoarthritis in his right lower extremity and right knee. He denies any rheumatoid arthritis. 2. Height is 5 feet 9 inches, weight is 216 pounds, BMI is 32. Vital signs: Blood pressure 134/89, pulse 74, respirations 16, oxygen sat is 97, pain score 6/10. 3. Fall risk: Denies dizziness. Does not need help walking or standing. Has not fallen in the last three months. He is not on any blood thinners and he does take medicine for hypertension. Opioid therapy is greater than six weeks; therefore, an opioid signed contract is on the chart. His risk assessment tool is moderate. Functional assessment is 70. [address] [address] PAIN MANAGEMENT CONSULTATION Name: BILL RICKETTS Room #: REG [facility] Jennifer.#: [id number] Admission: 09/25/18 ������������������ Attend Phys: Luzmaria Cuello Discharge: ������������������ Date of : 68 Report #: [id number] 4. Recreational drug use: He denies. He is not a smoker and does not drink alcohol. We did check the prescription monitoring system. The patient is on time for his medication to be filled today and there is a drug screen in the past that is appropriate for his medications. PHYSICAL EXAMINATION: GENERAL: This is a well-developed, well-nourished, well-hydrated 48-year-old gentleman placing his pain score today at 6/10. He is alert and orientated. His affect is appropriate. HEENT: Normocephalic, atraumatic. Extraocular eye muscles are intact. Mucous membranes are moist. MUSCULOSKELETAL: Without significant lordosis, kyphosis or scoliosis. Complains of numbness in his right thigh to his right knee. Does have some pain radiating down from his lower lumbar back to his left foot following the L5-S1 dermatomal distribution. He does walk with a slightly antalgic gait. His lower extremity strength judged to be 5/5 for all major muscle groups symmetrical in tone. IMPRESSION: Lumbar radiculopathy at the L4, L5, S1 distribution; previous knee surgeries; osteoarthritis; management of high-risk medications under terms of written opioid agreement. We reviewed the fact that opiate medications are being used to provide analgesia adequate to support activities of daily living, not attempting to achieve a specific pain score on the 0-10 Visual Analog Scale. The current opiate medications are providing sufficient analgesia to allow the patient to participate in activities of daily living. The patient is not exhibiting any aberrant behavior suggestive of drug diversion. The patient is not having any adverse reactions to medications. The patient is not suffering from daytime somnolence or mental acuity changes. The patient is managing opiate-induced constipation with appropriate lglv-wkh-wjjvwho agents and dietary considerations. The patient was counseled on concern for caution with operating a motor vehicle while using opiate medications. A physical exam was performed and the patient's functional status was evaluated. All patients with back pain were advised against the bed rest greater than 4 days and were advised to return to normal activities. Pain score assessment was noted and the treatment plan was reviewed with the patient. All current medications, both prescribed and OTC were reviewed and reconciled on the electronic medical record. Tobacco screening was accomplished and smoking cessation was advised when indicated. BMI was noted and diet/exercise modification was recommended for all patients following outside normal parameters. [facility] [address] [place] [address] PAIN MANAGEMENT CONSULTATION Name: BILL RICKETTS Room #: REG JANAE M.R.#: [id number] Admission: 09/25/18 ������������������ Attend Phys: Luzmaria Cuello Discharge: ������������������ Date of : 68 Report #: [id number] I reviewed with the patient today their responsibilities to safeguard prescription medications, reviewed their responsibility to utilize medications only as prescribed by the physician. They are to seek and receive pain medications only from 1 physician group ( [facility]). They are to use 1 pharmacy and keep the clinic informed if they change pharmacies. Their responsibilities include making followup visits in a timely fashion and to avoid abrupt discontinuation of medication usage. Their responsibilities further include bringing their medications (bottles from the pharmacy with residual pills) to the visit for possible confirmation of pill counts and the patient understands it is their responsibility to submit to random drug screens to ensure both that the medications prescribed are present, and that no other controlled substances are present. All prescriptions provided today were generated electronically. PLAN: 1. We discussed treatment options with the patient today. The patient did run out of his medications over the weekend, but did not call and request more medicine. He just worked through his pain. He understands that he is allowed 75 for the month and was able to function without his pills for those few days and did not have withdrawal symptoms. Scripts given today for his Percocet , #75. This places the patient at morphine milliequivalent of 37 per day. 2. The patient is not needing his tizanidine, amitriptyline or gabapentin today since he was given those at his last script last appointment. 3. The patient has made an appointment for one-month time. He was seen with Dr. William Jeffery, who collaborated care today. ��������������������������������������������� <ELECTRONICALLY SIGNED> ���������������������������������������� By: Luzmaria Cuello ��������������������������������������������� 09/26/18 0715 0957 1937 Luzmaria Cuello /samantha
== END ==
LOC: PAIN 06:47
DX: M54.16 Radiculopathy, lumbar region (principal); M19.90 Unspecified osteoarthritis, unspecified site; Z79.891 Long term (current) use of opiate analgesic; Z79.899 Other long term (current) drug therapy

== ENCOUNTER → 2018-10-23 | Outpatient (CLI) | payer OTHER ==
[~2018-10-23] VITALS: Ht 175.3 cm; Wt 100.8 kg
[2018-10-23 09:35] VITALS: BP 134/97
--- NOTE | 2018-10-23 09:39 | NUR ---
Pain Clinic Assessment: 1. History of Osteoarthritis: Right Lower Extremity RIGHT KNEE History of Rheumatoid Arthritis: Not Applicable 2. Height: 5 ft. 9 in. 175.3 cm. Weight: 222.2 lb. oz. 100.789 kg. Patient's BMI: 32.8 3. Vital Signs: BP: 134/97 Pulse: 84 Resp: 16 Temp: 02 Sat: 95 ECG Mon: 4. Pain Intensity: 4 5. Fall Risk: Dizziness: N Needs help standing or walking: N Fallen in the last 3 months: N Fall risk comments: 6. Patient on Blood Thinner: None 7. History of Hypertension: Y 8. Opioid Therapy greater than 6 weeks: Y Opiate Contract Signed: 12/26/17 9. Risk Assessment Tool Provided: MOD-6 10. Functional Assessment Tool: 11. Recreational Drug Use: Never Drug Type: Tobacco Use: Never Smoker Tobacco Type: Amount or Packs/day: How Many Years: Alcohol Use: No Frequency: Quant:
--- NOTE | 2018-10-23 15:10 | HPC ---
[facility] [address] [place] [address] PAIN MANAGEMENT CONSULTATION Name: BILL RICKETTS Room #: REG WILFREDOKimberly Okeefe#: [id number] Admission: 10/23/18 ������������������ Attend Phys: Luzmaria Cuello Discharge: ������������������ Date of : 68 Report #: [id number] THIS REPORT FOR: //name// CC: Luzmaria Munson DATE OF SERVICE: 10/23/2018 CHIEF COMPLAINT: Chronic low back pain and bilateral leg pain and right knee pain. HISTORY OF PRESENT ILLNESS: This is a pleasant 48-year-old gentleman who returns to the pain clinic today for refill of his medications for his ongoing low back and left leg pain. He tells me his pain score is 4/10 today, worse with standing or being on his feet for a prolonged period of time. It is a numbing, burning, cramping filling that he experiences in his low back that does radiate down his left leg. He tells me he is better when he is sitting or working out at the gym. He denies any problems of overmedication feeling, over sedated feeling or constipation. The patient tells me that his divorce after 4 years is finally final. He feels like he is able to move on with his life. He does have a potential contract with a [employer] that he is trying to work for and he does have a couple other phone interviews with some other pharmacy in the region and hopeful that he will land a job here soon and continue on with his life. ALLERGIES: PENICILLIN. CURRENT LIST OF MEDICATIONS: Oxycodone 10/325 p.r.n., Toprol 25 mg daily, nortriptyline 75 mg at bedtime, tizanidine 4 mg t.i.d. p.r.n., gabapentin 300 mg t.i.d., Flonase and allergy medicine. PQRS: 1. He has arthritic changes in his lower back and right knee and right hip. Denies any rheumatoid arthritis. 2. Height is 5 feet 9 inches, weight is 222 and BMI is 32. 3. Vital signs 134/97, pulse is 84, respirations 16 and oxygen sat is 95. 4. Pain score is 4/10. 5. Denies dizziness. Does not need help walking or standing. Has not fallen in the last 3 months. 6. The patient is not on any blood thinners, does take medicine for hypertension. 7. Opioid therapy is greater than 6 weeks; therefore, an opioid signed contract is on the chart. Risk assessment is moderate. Functional assessment is . 8. Recreational drug use, he denies. He is not a smoker [place] [address] PAIN MANAGEMENT CONSULTATION Name: BILL RICKETTS Room #: JERRY Okeefe#: [id number] Admission: 10/23/18 ������������������ Attend Phys: Luzmaria Cuello Discharge: ������������������ Date of : 68 Report #: [id number] alcohol. We did check the prescription monitoring system. The patient is filling appropriately for medications in a timely fashion. He safeguards his medications. PHYSICAL EXAMINATION: GENERAL: This is a well-developed, well-nourished, well-hydrated 48-year-old gentleman. Placing his pain score today at 4/10. He is alert and oriented. HEENT: Normocephalic and atraumatic. Extraocular eye muscles are intact. Mucous membranes are moist. MUSCULOSKELETAL: Without significant lordosis, kyphosis or scoliosis. He has numbness in his right thigh. Complains of some right knee pain. Pain radiates from his lumbar back to his left foot following the L5-S1 dermatomal distribution. He walks with a slightly antalgic gait. Lower extremity strength judged to be 5/5 for all major muscle groups with symmetrical tone and muscle mass. We reviewed the fact that opiate medications are being used to provide analgesia adequate to support activities of daily living, not attempting to achieve a specific pain score on the 0-10 Visual Analog Scale. The current opiate medications are providing sufficient analgesia to allow the patient to participate in activities of daily living. The patient is not exhibiting any aberrant behavior suggestive of drug diversion. The patient is not having any adverse reactions to medications. The patient is not suffering from daytime somnolence or mental acuity changes. The patient is managing opiate-induced constipation with appropriate jnez-hbr-zxoosel agents and dietary considerations. The patient was counseled on concern for caution with operating a motor vehicle while using opiate medications. A physical exam was performed and the patient's functional status was evaluated. All patients with back pain were advised against the bed rest greater than 4 days and were advised to return to normal activities. Pain score assessment was noted and the treatment plan was reviewed with the patient. All current medications, both prescribed and OTC were reviewed and reconciled on the electronic medical record. Tobacco screening was accomplished and smoking cessation was advised when indicated. BMI was noted and diet/exercise modification was recommended for all patients following outside normal parameters. I reviewed with the patient today their responsibilities to safeguard prescription medications, reviewed their responsibility to utilize medications only as prescribed by the physician. They are to seek and receive pain medications only from 1 physician group ([facility]). They are to use 1 pharmacy and keep the clinic informed if they change pharmacies. Their responsibilities include making followup visits in a timely fashion and to avoid [address] [place] [address] PAIN MANAGEMENT CONSULTATION Name: BILL RICKETTS Room #: REG [facility]..#: [id number] Admission: 10/23/18 ������������������ Attend Phys: Luzmaria NICOLLE Cuello Discharge: ������������������ Date of : 68 Report #: [id number] abrupt discontinuation of medication usage. Their responsibilities further include bringing their medications (bottles from the pharmacy with residual pills) to the visit for possible confirmation of pill counts and the patient understands it is their responsibility to submit to random drug screens to ensure both that the medications prescribed are present, and that no other controlled substances are present. All prescriptions provided today were generated electronically. IMPRESSION: 1. Lumbar radiculopathy at the L4, L5, S1 distribution. 2. Osteoarthritis with previous knee surgeries. 3. Management of high risk medications under terms of written opioid agreement. PLAN: 1. We discussed treatment options with the patient today. The patient is doing reasonably well on his current medication. He feels like he is being more active and that does help working out at the gym when he finds very beneficial trying to be more active that is helping control some of his pain as well. 2. Script was given for Percocet 10/325, #75 with no refills; tizanidine 4 mg t.i.d., 270 with 1 refill; gabapentin 300 mg t.i.d., 270 with 1 refill and Elavil 75 mg, #90 with 1 additional refill. These are 3 months supplies of this medication. 3. The patient is seen in collaboration with Dr. Manuel Townsend who did see the patient as well today. The patient will return in 1 month for followup for medications. ��������������������������������������������� <ELECTRONICALLY SIGNED> ���������������������������������������� By: Luzmaria Cuello ��������������������������������������������� 10/23/18 1510 1006 1034 Luzmaria Cuello /nt
== END ==
LOC: PAIN 09:21
DX: M54.16 Radiculopathy, lumbar region (principal); M17.11 Unilateral primary osteoarthritis, right knee; M79.605 Pain in left leg; M79.604 Pain in right leg; Z79.899 Other long term (current) drug therapy; Z79.891 Long term (current) use of opiate analgesic; Z88.0 Allergy status to penicillin

== ENCOUNTER → 2018-12-18 | Outpatient (CLI) | payer OTHER ==
[~2018-12-18] VITALS: Ht 175.3 cm; Wt 99.8 kg
[2018-12-18 14:00] VITALS: BP 143/103
--- NOTE | 2018-12-18 14:04 | NUR ---
Pain Clinic Assessment: 1. History of Osteoarthritis: Right Lower Extremity RIGHT KNEE History of Rheumatoid Arthritis: Not Applicable 2. Height: 5 ft. 9 in. 175.3 cm. Weight: 220.0 lb. oz. 99.792 kg. Patient's BMI: 32.5 3. Vital Signs: BP: 143/103 Pulse: 94 Resp: 16 Temp: 02 Sat: 99 ECG Mon: 4. Pain Intensity: 4 5. Fall Risk: Dizziness: N Needs help standing or walking: N Fallen in the last 3 months: N Fall risk comments: 6. Patient on Blood Thinner: None 7. History of Hypertension: Y 8. Opioid Therapy greater than 6 weeks: Y Opiate Contract Signed: 12/26/17 9. Risk Assessment Tool Provided: MOD-6 10. Functional Assessment Tool: 11. Recreational Drug Use: Never Drug Type: Tobacco Use: Never Smoker Tobacco Type: Amount or Packs/day: How Many Years: Alcohol Use: No Frequency: Quant:
--- NOTE | 2018-12-19 13:22 | HPC ---
[facility] [address] [place] [address] PAIN MANAGEMENT CONSULTATION Name: BILL RICKETTS Room #: REG JANAE Okeefe#: [id number] Admission: 12/18/18 ������������������ Attend Phys: Luzmaria Cuello Discharge: ������������������ Date of : 68 Report #: [id number] THIS REPORT FOR: //name// CC: Luzmaria Munson DATE OF SERVICE: 12/18/2018 CHIEF COMPLAINT: Chronic low back pain with bilateral leg pain and left hip pain. HISTORY OF PRESENT ILLNESS: This is a 48-year-old gentleman who returns to the pain clinic today for refill of his medications that he uses to help treat his ongoing low back pain. Today, he rates his pain score at 4/10 in his left hip that radiates down his left leg to his foot and is an aching, numbness and occasional burning feeling, rating his pain score 4/10. He tells me that it is worse after he has been on his feet a long time and also sitting for a prolonged period of time. He finds the medications very helpful as well as activity and keep active doing stretching exercises. He recently reported that he had to have the stomach flu for about a week. His pain did flare during that time since he was unable to take his medications as he normally does, but fortunately he feels that he is better now. He did have a Medrol Dosepak at her last visit, which he found very beneficial in helping control some of this pain as well. ALLERGIES: PENICILLIN. CURRENT LIST OF MEDICATIONS: Oxycodone 10/325, amitriptyline 75 mg, gabapentin 300 mg, tizanidine 4 mg, metoprolol 25 mg, Flonase and allergy medicine. PQRS: 1. He has a history of osteoarthritis in his right knee and lower extremities. Denies any rheumatoid arthritis. 2. Height is 5 feet 9 inches, weight is 220, BMI is 32. 3. Vital signs 143/103, pulse is 94, respirations 16, oxygen sat is 99. 4. Pain score is 4/10. 5. Denies dizziness, does not need help standing or walking, has not fallen in the last 3 months. 6. The patient is not on any blood thinners, but does take medicine for hypertension. 7. Opioid therapy is greater than 6 weeks; therefore, an opioid signed contract is on the chart. Risk assessment is moderate. Functional assessment is . 8. Recreational drug use, he denies. He is not a smoker and does not drink alcohol. According to the prescription monitoring system, the patient last filled his medicine on 11/20/2018. There is a recent drug screen on the chart as well that [address] [address] PAIN MANAGEMENT CONSULTATION Name: BILL RICKETTS Room #: REG JANAE Okeefe#: [id number] Admission: 12/18/18 ������������������ Attend Phys: Luzmaria Cuello Discharge: ������������������ Date of : 68 Report #: [id number] is appropriate for his medications. PHYSICAL EXAMINATION: GENERAL: This is a well-developed, well-nourished, well-hydrated 48-year-old gentleman who appears his stated age, placing his current pain score today at 4/10. He is alert and orientated. HEENT: Normocephalic, atraumatic. Extraocular eye muscles are intact. Mucous membranes are moist. MUSCULOSKELETAL: He does walk with a slightly antalgic gait. He is complaining of left hip pain that radiates down his left leg following the L5 dermatomal distribution. He is without significant scoliosis, kyphosis or lordosis. His lower muscle strength judged to be 5/5 in all major muscle groups. We reviewed the fact that opiate medications are being used to provide analgesia adequate to support activities of daily living, not attempting to achieve a specific pain score on the 0-10 Visual Analog Scale. The current opiate medications are providing sufficient analgesia to allow the patient to participate in activities of daily living. The patient is not exhibiting any aberrant behavior suggestive of drug diversion. The patient is not having any adverse reactions to medications. The patient is not suffering from daytime somnolence or mental acuity changes. The patient is managing opiate-induced constipation with appropriate eujl-rje-yyapevk agents and dietary considerations. The patient was counseled on concern for caution with operating a motor vehicle while using opiate medications. A physical exam was performed and the patient's functional status was evaluated. All patients with back pain were advised against the bed rest greater than 4 days and were advised to return to normal activities. Pain score assessment was noted and the treatment plan was reviewed with the patient. All current medications, both prescribed and OTC were reviewed and reconciled on the electronic medical record. Tobacco screening was accomplished and smoking cessation was advised when indicated. BMI was noted and diet/exercise modification was recommended for all patients following outside normal parameters. I reviewed with the patient today their responsibilities to safeguard prescription medications, reviewed their responsibility to utilize medications only as prescribed by the physician. They are to seek and receive pain medications only from 1 physician group ( [facility]). They are to use 1 pharmacy and keep the clinic informed if they change pharmacies. Their responsibilities include making followup visits in a timely fashion and to avoid abrupt discontinuation of medication usage. Their responsibilities further include bringing their medications (bottles from the pharmacy with residual pills) to the visit for possible confirmation of pill counts and the patient understands it is their responsibility to submit to random drug screens to ensure both that the medications prescribed are present, and that no other [facility] [address] [place] [address] PAIN MANAGEMENT CONSULTATION Name: BILL RICKETTS Room #: REG CLI ..#: [id number] Admission: 12/18/18 ������������������ Attend Phys: Luzmaria Cuello Discharge: ������������������ Date of : 68 Report #: [id number] controlled substances are present. All prescriptions provided today were generated electronically. PLAN: 1. We discussed treatment options today. The patient is given a script for oxycodone , #75. He found this very beneficial in controlling his pain. This is a 1-month supply of this medication. I explained to the patient that his next visit will be due on 01/17/2019. The patient verbalizes understanding. 2. The patient does not need his Elavil, gabapentin and tizanidine refilled since we had given him a 90-day prescription in October with refills. 3. The patient is seen in collaboration with Dr. Javier Townsend today. The patient will return in 1 month. ��������������������������������������������� <ELECTRONICALLY SIGNED> ���������������������������������������� By: Luzmaria Cuello ��������������������������������������������� 12/19/18 1322 1503 0107 Luzmaria Cuello /nt
== END ==
LOC: PAIN 07:05
DX: M54.5 Low back pain (principal); M25.552 Pain in left hip; Z88.0 Allergy status to penicillin; Z79.899 Other long term (current) drug therapy

== ENCOUNTER → 2019-01-17 | Outpatient (CLI) | payer OTHER ==
[~2019-01-17] VITALS: Ht 175.3 cm; Wt 100.9 kg
[2019-01-17 12:40] VITALS: BP 144/88
--- NOTE | 2019-01-17 12:42 | NUR ---
Pain Clinic Assessment: 1. History of Osteoarthritis: Right Lower Extremity RIGHT KNEE History of Rheumatoid Arthritis: Not Applicable 2. Height: 5 ft. 9 in. 175.3 cm. Weight: 222.4 lb. oz. 100.880 kg. Patient's BMI: 32.8 3. Vital Signs: BP: 144/88 Pulse: 98 Resp: 18 Temp: 02 Sat: 99 ECG Mon: 4. Pain Intensity: 5 5. Fall Risk: Dizziness: N Needs help standing or walking: N Fallen in the last 3 months: N Fall risk comments: 6. Patient on Blood Thinner: None 7. History of Hypertension: Y 8. Opioid Therapy greater than 6 weeks: Y Opiate Contract Signed: 12/26/17 9. Risk Assessment Tool Provided: MOD-6 10. Functional Assessment Tool: 11. Recreational Drug Use: Never Drug Type: Tobacco Use: Never Smoker Tobacco Type: Amount or Packs/day: How Many Years: Alcohol Use: No Frequency: Quant:
--- NOTE | 2019-01-29 09:44 | HPC ---
[facility] [place] [address] PAIN MANAGEMENT CONSULTATION Name: BILL RICKETTS Room #: REG JANAE CaseJarethKirkJareth#: [id number] Admission: 01/17/19 Attend Phys: Hair Townsend MD Discharge: Date of : 68 Report #: [id number] THIS REPORT FOR: //name// CC: Hair Munson DATE OF SERVICE: 01/17/2019 CHIEF COMPLAINT: Here for medication renewal. HISTORY: The patient is a 48-year-old gentleman who has been followed in the pain clinic because of chronic pain. Has pain in the lower portion of his back, which radiates down into his leg. Epidural steroids in the past have been helpful. Still has some numbness and occasional burning sensation, which radiates down into his leg. Rates it as a 5/10 at this point. He continues to do stretching exercises. He is somewhat optimistic in regards to his job opportunities. He feels that the medications are helpful and would like to continue their use. States that he has taken the medication as prescribed. ALLERGIES: PENICILLIN. CURRENT MEDICATIONS: Oxycodone 10/325, amitriptyline 75 mg, gabapentin 300 mg t.i.d., tizanidine 4 mg, metoprolol 25 mg, Flonase. PAIN CLINIC ASSESSMENT AND PQRS: 1. The patient has a history of osteoarthritis in his right knee and lower extremity. Denies treatment for rheumatoid arthritis. 2. Height 5 feet 9 inches, weight 222 pounds, BMI is 32.8. 3. Vital signs: Blood pressure 144/88, pulse 98, respiratory rate is 18, room air saturation is 99%. 4. Pain intensity 5/10. 5. Fall history: The patient has not fallen in the last 3 months. 6. Blood thinner. The patient is not on a blood thinning medication. 7. Hypertension. The patient is being treated for hypertension. 8. Opioids greater than 6 weeks, the patient receives medication from one source, the pain clinic. 9. Risk assessment tool, moderate. 10. Functional assessment tool . 11. Recreational drug use. The patient denies. 12. Tobacco: The patient denies tobacco use. 13. Alcohol: The patient denies frequent alcoholic use. PHYSICAL EXAMINATION: GENERAL: The patient is a well-developed, well-nourished white male. Appears his stated age. He is alert and oriented x 3. His affect is appropriate. Speech is fluent. [address] [address] PAIN MANAGEMENT CONSULTATION Name: BILL RICKETTS Room #: REG [facility] Jennifer#: [id number] Admission: 01/17/19 Attend Phys: Hair Townsend MD Discharge: Date of : 68 Report #: [id number] HEENT: Normocephalic, atraumatic. Extraocular eye muscles intact. The patient has some ____ in his eyes, appears to have suffered from strabismus and may have had surgery when he was younger. HEART: Regular rate. ABDOMEN: Nontender. Bowel sounds present. EXTREMITIES: Upper extremity muscle strength judged to be 5/5 for the major muscle groups in the upper extremity. The patient has pain and discomfort radiating down to his left hip and into his left leg in the L5 dermatomal distribution. Patient without significant scoliosis, kyphosis, or lordosis. Muscle strength judged to be 5/5 for the major muscle groups in the upper extremity and lower extremity. IMPRESSION: 1. Lumbar radiculopathy, L4-L5 and L5-S1 distribution. 2. Osteoarthritis with previous knee surgeries. 3. Management of pain using high risk medications. RECOMMENDATIONS: We discussed treatment options with the patient. At this juncture, we will continue with his medications. He feels that the medications have been beneficial. He has returned today with the hope of having his medications renewed. Again, I talked for some time regarding his new job opportunity. 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 He is quite encouraged about the new prospects. A script for his medications of Percocet 10/325, total of 75 tablets, these medications have been renewed. He will follow up in the future. We would like to thank you for letting us participate in his care. We hope he continues to improve. <ELECTRONICALLY SIGNED> By: Hair Townsend MD 01/29/19 [id number] [id number] Hair Townsend MD /nt
== END ==
LOC: PAIN 06:39
DX: Z76.0 Encounter for issue of repeat prescription (principal); G89.29 Other chronic pain; M54.16 Radiculopathy, lumbar region; M19.90 Unspecified osteoarthritis, unspecified site; Z79.891 Long term (current) use of opiate analgesic; Z79.899 Other long term (current) drug therapy

== ENCOUNTER → 2019-03-12 | Outpatient (CLI) | payer OTHER ==
[~2019-03-12] VITALS: Ht 175.3 cm; Wt 96.2 kg
[2019-03-12 13:27] VITALS: BP 136/83
--- NOTE | 2019-03-12 13:32 | NUR ---
Pain Clinic Assessment: 1. History of Osteoarthritis: Right Lower Extremity RIGHT KNEE History of Rheumatoid Arthritis: Not Applicable 2. Height: 5 ft. 9 in. 175.3 cm. Weight: 212.0 lb. oz. 96.163 kg. Patient's BMI: 31.3 3. Vital Signs: BP: 136/83 Pulse: 75 Resp: 16 Temp: 02 Sat: 98 ECG Mon: 4. Pain Intensity: 3 5. Fall Risk: Dizziness: N Needs help standing or walking: N Fallen in the last 3 months: N Fall risk comments: 6. Patient on Blood Thinner: None 7. History of Hypertension: Y 8. Opioid Therapy greater than 6 weeks: Y Opiate Contract Signed: 12/26/17 9. Risk Assessment Tool Provided: high-12 10. Functional Assessment Tool: / 11. Recreational Drug Use: Never Drug Type: Tobacco Use: Never Smoker Tobacco Type: Amount or Packs/day: How Many Years: Alcohol Use: No Frequency: Quant:
--- NOTE | 2019-03-13 16:06 | HPC ---
[facility] [place] [address] PAIN MANAGEMENT CONSULTATION Name: BILL RICKETTS [id number] Admission: 03/12/19 Attend Phys: Luzmaria Cuello Discharge: Date of : 68 Report #: [id number] THIS REPORT FOR: //name// CC: Luzmaria Munson MD DATE OF SERVICE: 03/12/2019 CHIEF COMPLAINT: Chronic low back pain, lumbar radiculopathy. HISTORY OF PRESENT ILLNESS: This is a 48-year-old gentleman who returns to the pain clinic today for refill of his medications that he uses to help treat his ongoing low back pain that radiates into his left leg and hip. He reports it is an aching, numbness and occasional burning pain, rating it 3/10 today. He feels that his pain is exacerbated by standing for a long time or for prolonged sitting. He feels that the medications are beneficial as well as being active and working out. He reports he is not feeling well today. He has had a cold. He does look slightly andi that he is extremely tired per his report. ALLERGIES: PENICILLIN. CURRENT LIST OF MEDICATIONS: Tizanidine 4 mg t.i.d. p.r.n., oxycodone 10/325 p.r.n., gabapentin 300 mg 3 times a day, amitriptyline 75 mg at bedtime, metoprolol 25 mg daily, Flonase and Yvette. PQRS: 1. He has a history of osteoarthritis in his right lower extremity. Denies any rheumatoid arthritis. 2. Height is 5 feet 9 inches, weight is 219, BMI is 32. 3. Vital signs 140/88, pulse is 83, respirations 16, oxygen sat is 96. 4. Pain score is 5/10. 5. Denies dizziness, does not need help walking or standing, has not fallen in the last 3 months. 6. The patient is not on any blood thinners, but does take medicine for hypertension. 7. Opiate therapy is greater than 6 weeks; therefore, an opioid signed contract is on the chart. Risk assessment is high. Functional assessment is . 8. Recreational drug use, he denies. He is not a smoker and does not drink alcohol. According to the prescription monitoring system, patient is filling appropriately for his medications. He is on time to fill his medications today. There is a recent drug screen on the chart as well. He reports he does safeguard his meds at all times. [address] [address] PAIN MANAGEMENT CONSULTATION Name: BILL RICKETTS Room #: REG JANAE Okeefe#: [id number] Admission: 03/12/19 Attend Phys: Luzmaria Cuello Discharge: Date of : 68 Report #: [id number] PHYSICAL EXAMINATION: GENERAL: This is a well-developed, well-nourished white gentleman who appears his stated age. He is alert and orientated. His affect is appropriate, placing his pain score at 3/10. HEENT: Normocephalic, atraumatic. Extraocular eye muscles are intact. Eyes are slightly bloodshot today due to lack of sleep. ABDOMEN: Nontender. Bowel sounds present. MUSCULOSKELETAL: Upper extremity strength judged to be 5/5 in all major muscle groups. He has discomfort in his lumbosacral area of his spine that radiates into his left hip, down his posterior left leg following the L5 dermatomal distribution. His lower extremity strength judged to be 5/5 in all major muscle groups. He is without significant scoliosis, kyphosis or lordosis. IMPRESSION: 1. Lumbar radiculopathy at the L4-L5 and L5-S1 dermatomal distribution. 2. Osteoarthritis in his knees, previous surgery. 3. Management of high risk medications under terms of written opioid agreement. PLAN: 1. We discussed treatment options with the patient today. The patient finds his medication very beneficial in providing him quality analgesics and allowing him to perform activities of daily living. He denies any problems with constipation or daytime sleepiness as a result of these medications. We will refill his oxycodone 10/325 #75 today. This is an average of 30 morphine mEq per day according to the CDC guidelines. 2. The patient reports that he has not been employed yet. 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 He has been in contact with a company and has a contract signed, so he is hopeful they will have a dispensary and he will be able to start work in April. 3. The patient is seen in collaboration today with Dr. Javier Townsend. <ELECTRONICALLY SIGNED> By: Luzmaria Cuello 03/13/19 1606 [id number] Luzmaria Cuello /samantha
== END ==
LOC: PAIN 07:11
DX: M54.16 Radiculopathy, lumbar region (principal); M17.0 Bilateral primary osteoarthritis of knee; Z79.891 Long term (current) use of opiate analgesic

== ENCOUNTER → 2019-05-09 | Outpatient (CLI) | payer OTHER ==
[~2019-05-09] VITALS: Ht 175.3 cm; Wt 100.2 kg
[2019-05-09 09:01] VITALS: BP 153/102
--- NOTE | 2019-05-09 09:05 | NUR ---
Pain Clinic Assessment: 1. History of Osteoarthritis: RIGHT KNEE History of Rheumatoid Arthritis: Not Applicable 2. Height: 5 ft. 9 in. 175.3 cm. Weight: 221.0 lb. oz. 100.245 kg. Patient's BMI: 32.6 3. Vital Signs: BP: 153/102 Pulse: 91 Resp: 18 Temp: 02 Sat: 99 ECG Mon: 4. Pain Intensity: 4 5. Fall Risk: Dizziness: N Needs help standing or walking: N Fallen in the last 3 months: N Fall risk comments: 6. Patient on Blood Thinner: None 7. History of Hypertension: Y 8. Opioid Therapy greater than 6 weeks: Y Opiate Contract Signed: 12/26/17 9. Risk Assessment Tool Provided: high-15 10. Functional Assessment Tool: 11. Recreational Drug Use: Never Drug Type: Tobacco Use: Never Smoker Tobacco Type: Amount or Packs/day: How Many Years: Alcohol Use: No Frequency: Quant:
--- NOTE | 2019-05-12 16:00 | HPC ---
[facility] [address] [address] PAIN MANAGEMENT CONSULTATION Name: BILL RICKETTS Room #: REG JANAE Rodriguez.#: [id number] Admission: 05/09/19 Attend Phys: Luzmaria Cuello Discharge: Date of : 68 Report #: [id number] THIS REPORT FOR: cc: Cecilio Munson MD,Cecilio Cuello, Luzmaria VALVERDE ~ THIS REPORT FOR: //name// DATE OF SERVICE: 05/09/2019 CHIEF COMPLAINT: Chronic low back pain, bilateral leg pain. HISTORY OF PRESENT ILLNESS: This is a 48-year-old gentleman who returned to the pain clinic today for refill of his medications. He reports a pain score of 4/10 today reporting that his pain is today, located in his left hip radiating down his left leg to his foot is an aching, burning, numbness feeling that is worse when he has prolonged standing or prolonged sitting. He feels that the medication as well as being active and resting occasionally are very beneficial. He denies any problems with constipation or daytime sleepiness as a result of his medications. The patient is slightly hypertensive today. He does report that he continues to take his blood pressure several times a day. 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 His heart rate currently is in the 90s today. ALLERGIES: PENICILLIN. CURRENT LIST OF MEDICATIONS: Oxycodone 10/325 p.r.n., tizanidine p.r.n., gabapentin 300 mg t.i.d., amitriptyline 75 mg at bedtime, metoprolol 25 mg at bedtime daily and allergy medicine. PQRS: 1. He has osteoarthritis in his right knee and lower extremity. He denies any rheumatoid arthritis. 2. Height is 5 feet 9 inches, weight is 221. BMI is 32. 3. Vital signs 152/102, pulse is 91, respirations 18, oxygen sat is 99. 4. Pain score is 4/10. 5. Denies dizziness, does not need help walking or standing, has not fallen in the last 3 months. 6. The patient is not on any blood thinners, but does take medicine for hypertension, which we discussed today. 7. Opiate therapy is greater than 6 weeks; therefore, an opioid signed contract is on the chart. Risk assessment is high. Functional assessment is . [address] [address] PAIN MANAGEMENT CONSULTATION Name: BILL RICKETTS Room #: REG CLI JarethKirkJareth#: [id number] Admission: 05/09/19 Attend Phys: Luzmaria Cuello Discharge: Date of : 68 Report #: [id number] 8. Recreational drug use, he denies. He is not a smoker and does not drink alcohol. According to the prescription monitoring system, the patient is filling appropriately for his medication in a timely fashion. According to the CDC guidelines, his morphine mEq per day is 37. PHYSICAL EXAMINATION: GENERAL: This is alert and orientated 48-year-old gentleman who appears his stated age, placing his current pain score at 4/10 today. His speech is fluent. Affect is appropriate. HEENT: Normocephalic, atraumatic. Extraocular eye muscles are intact. Mucous membranes are moist. Heart rate is regular. Does have a pacemaker. EXTREMITIES: Pain radiates from the lumbosacral area down the left hip into the left leg following the L4-L5 and L5-S1 dermatomal distribution. He is without significant scoliosis, kyphosis or lordosis. His lower extremity muscle strength judged to be 5/5 in all major muscle groups with intact dermatomal sensation from L1-S2. IMPRESSION: 1. Lumbar radiculopathy at the L4-L5 dermatomal distribution. 2. Osteoarthritis. 3. Hypertension. 4. Management of high risk medications under terms of written opioid agreement. We reviewed the fact that opiate medications are being used to provide analgesia adequate to support activities of daily living, not attempting to achieve a specific pain score on the 0-10 Visual Analog Scale. The current opiate medications are providing sufficient analgesia to allow the patient to participate in activities of daily living. The patient is not exhibiting any aberrant behavior suggestive of drug diversion. The patient is not having any adverse reactions to medications. The patient is not suffering from daytime somnolence or mental acuity changes. The patient is managing opiate-induced constipation with appropriate [id number]-myrmpuu agents and dietary considerations. The patient was counseled on concern for caution with operating a motor vehicle while using opiate medications. A physical exam was performed and the patient's functional status was evaluated. All patients with back pain were advised against the bed rest greater than 4 days and were advised to return to normal activities. Pain score assessment was noted and the treatment plan was reviewed with the patient. All current medications, both prescribed and OTC were reviewed and reconciled on the electronic medical record. Tobacco screening was accomplished and smoking cessation was advised when indicated. BMI was noted and diet/exercise modification was recommended for all patients following outside normal parameters. [address] [address] PAIN MANAGEMENT CONSULTATION Name: BILL RICKETTS Room #: REG JANAE Okeefe#: [id number] Admission: 05/09/19 Attend Phys: Luzmaria Cuello Discharge: Date of : 68 Report #: [id number] I reviewed with the patient today their responsibilities to safeguard prescription medications, reviewed their responsibility to utilize medications only as prescribed by the physician. They are to seek and receive pain medications only from 1 physician group ( [facility]). They are to use 1 pharmacy and keep the clinic informed if they change pharmacies. Their responsibilities include making followup visits in a timely fashion and to avoid abrupt discontinuation of medication usage. Their responsibilities further include bringing their medications (bottles from the pharmacy with residual pills) to the visit for possible confirmation of pill counts and the patient understands it is their responsibility to submit to random drug screens to ensure both that the medications prescribed are present, and that no other controlled substances are present. All prescriptions provided today were generated electronically. PLAN: 1. We discussed treatment options with the patient today. The patient is doing well on his current regimen. We will refill his oxycodone 10/325, #75 for 1 month and have him follow up again in one month's time. 2. 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 3. We did discuss his high blood pressure today. The patient does report that he takes it at home several times a day. We read slightly lower than he is having read today at 152/102. I did caution the patient about this elevated number and the possible risks associated with having elevated blood pressure and encouraged him to see his primary care doctor. 4. The patient is seen today in collaboration with Dr. Javier Townsend. <ELECTRONICALLY SIGNED> By: Luzmaria Cuello 05/12/19 [id number] Luzmaria Cuello /nt
== END ==
LOC: PAIN 06:45
DX: M54.16 Radiculopathy, lumbar region (principal); M19.90 Unspecified osteoarthritis, unspecified site; I10 Essential (primary) hypertension; Z79.891 Long term (current) use of opiate analgesic; Z88.0 Allergy status to penicillin

== ENCOUNTER → 2019-08-08 | Outpatient (CLI) | payer OTHER ==
[~2019-08-08] VITALS: Ht 175.3 cm; Wt 101.7 kg
[2019-08-08 08:38] VITALS: BP 146/95
--- NOTE | 2019-08-08 08:47 | NUR ---
Pain Clinic Assessment: 1. History of Osteoarthritis: RIGHT KNEE History of Rheumatoid Arthritis: Not Applicable 2. Height: 5 ft. 9 in. 175.3 cm. Weight: 224.2 lb. oz. 101.697 kg. Patient's BMI: 33.1 3. Vital Signs: BP: 146/95 Pulse: 85 Resp: 16 Temp: 02 Sat: 100 ECG Mon: 4. Pain Intensity: 4-5 5. Fall Risk: Dizziness: Y Needs help standing or walking: N Fallen in the last 3 months: N Fall risk comments: 6. Patient on Blood Thinner: None 7. History of Hypertension: Y 8. Opioid Therapy greater than 6 weeks: Y Opiate Contract Signed: 12/26/17 9. Risk Assessment Tool Provided: high-15 10. Functional Assessment Tool: 11. Recreational Drug Use: Never Drug Type: Tobacco Use: Never Smoker Tobacco Type: Amount or Packs/day: How Many Years: Alcohol Use: No Frequency: Quant:
--- NOTE | 2019-08-11 08:46 | HPC ---
[facility] [address] [place] [address] PAIN MANAGEMENT CONSULTATION Name: BILL RICKETTS Room #: REG JANAE Case.Kirk.#: [id number] Admission: 08/08/19 Attend Phys: Luzmaria Cuello Discharge: Date of : 68 Report #: [id number] THIS REPORT FOR: cc: Cecilio Munson MD,Cecilio Cuello,Luzmaria VALVERDE ~ CC: To Townsend MD DATE OF SERVICE: 08/08/2019 CHIEF COMPLAINT: Low back pain and bilateral leg pain. HISTORY OF PRESENT ILLNESS: This is a 49-year-old gentleman who returns to the pain clinic today for refill of his opioid medications. Today, he is reporting a slight increase in his pain at 4-5/10. He states that he has had more burning in his feet, his left foot this week along with his ongoing low back and left hip pain. He states that his pain has been increased when he is standing or mowing the lawn. He feels that normally medications are beneficial as well as rest. He reports that he feels he is in atrial fibrillation. He does have a pacemaker. He had a home health nurse assess him who was visiting his father and she did report an irregular heartbeat. 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 Overall, he feels that his opioid medications are beneficial in allowing him to be fairly active, though he does report he knows he needs to be walking more and trying to lose weight. ALLERGIES: PENICILLIN. CURRENT LIST OF MEDICATIONS: Tizanidine 4 mg, oxycodone 10/325, gabapentin 300 mg t.i.d., amitriptyline 75 mg at bedtime, metoprolol 25 mg daily, Flonase and allergy medicine. PQRS: 1. He has osteoarthritis in his knees. He denies any rheumatoid arthritis. 2. Height is 5 feet 9 inches, weight is 224, BMI is 33. 3. Blood pressure 146/95, pulse is 85, respirations 16, oxygen sat is 100. 4. Pain score is 4-5. 5. Complains of slight dizziness, does not need help walking or standing, has not fallen in the last 3 months. 6. The patient is not on any blood thinners. He does take medicine for hypertension. Opioid therapy is greater than 6 weeks; therefore, an opioid signed contract is on the chart. Risk assessment tool is high. Functional assessment is . 7. Recreational drug use, he denies. He is not a smoker and does not drink alcohol. According to the prescription monitoring system, his last prescription was [address] [address] PAIN MANAGEMENT CONSULTATION Name: BILL RICKETTS Room #: REG JANAE [place]keefe#: [id number] Admission: 08/08/19 Attend Phys: Luzmaria Cuello Discharge: Date of : 68 Report #: [id number] filled on 07/04/2019. He is due to fill this medication today. According to the CDC guidelines, his morphine mEq per day is 25 MMEs per day. PHYSICAL EXAMINATION: GENERAL: This is alert and orientated 49-year-old gentleman who appears his stated age, placing his current pain score at 4-5/10 today. He is well nourished, well-developed. His affect is appropriate and his speech is fluent. HEENT: Normocephalic, atraumatic. Extraocular eye muscles are intact. Mucous membranes are moist. NECK: Without adenopathy or JVD. CADIAC: Irregular rhythm today. EXTREMITIES: His upper and lower extremities strength judged to be 5/5 in all major muscle groups with good sensation. He is without significant scoliosis, lordosis or kyphosis. He has discomfort in his lumbosacral region that does radiate down his L4-L5 dermatomal distribution. He has an antalgic gait. IMPRESSION: 1. Lumbar radiculopathy with a history of L4-L5 and L5-S1 dermatomal distribution. 2. Osteoarthritis. 3. Chronic pain with high risk medications. Utilizing opioid medication. We reviewed the fact that opiate medications are being used to provide analgesia adequate to support activities of daily living, not attempting to achieve a specific pain score on the 0-10 Visual Analog Scale. The current opiate medications are providing sufficient analgesia to allow the patient to participate in activities of daily living. The patient is not exhibiting any aberrant behavior suggestive of drug diversion. The patient is not having any adverse reactions to medications. The patient is not suffering from daytime somnolence or mental acuity changes. The patient is managing opiate-induced constipation with appropriate [id number] agents and dietary considerations. The patient was counseled on concern for caution with operating a motor vehicle while using opiate medications. PLAN: 1. We discussed treatment options with the patient today. The patient finds his medication beneficial. He is recently having slight increase in pain, but last week, he reports that his pain was better controlled. He does take an average of 2 pills a day with occasionally third pill if needed. We will refill his oxycodone , #[address] Javier Townsend will send this electronically to the pharmacy. 2. The patient reports he has been having some irregular heartbeat. He feels that his AFib has returned. He especially notices when he is mowing in the lawn or physically active that he is having some shortness of breath and his heart rate seems more irregular. I encouraged him to call his arc welder apprentice to make an appointment. The patient is worried they will order significant test since he [facility] [address] [place] [address] PAIN MANAGEMENT CONSULTATION Name: BILL RICKETTS Room #: REG [facility]..#: [id number] Admission: 08/08/19 Attend Phys: Luzmaria Cuello Discharge: Date of : 68 Report #: [id number] does not have insurance. I explained to him he at least needs to go and have an appointment to be checked over and start on some medications. The patient verbalizes understanding. 3. The patient will return in 1 month for an appointment. The patient is seen today in collaboration with Dr. Townsend. <ELECTRONICALLY SIGNED> By: Luzmaria Culelo 08/11/19 0846 [id number] Luzmaria Cuello /samantha
== END ==
LOC: PAIN 07:17
DX: M54.16 Radiculopathy, lumbar region (principal); M79.604 Pain in right leg; M79.605 Pain in left leg; M19.90 Unspecified osteoarthritis, unspecified site; G89.4 Chronic pain syndrome; F11.20 Opioid dependence, uncomplicated; Z79.899 Other long term (current) drug therapy

== ENCOUNTER → 2019-09-05 | Outpatient (CLI) | payer OTHER ==
[~2019-09-05] VITALS: Ht 175.3 cm; Wt 99.3 kg
[~2019-09-05] MED LIST changes: +NEURONTIN300 MG PO
--- NOTE | ~2019-09-05 | HPC ---
[facility] [place] [address] PAIN MANAGEMENT CONSULTATION Name: BILL RICKETTS Room #: REG JANAE Rodriguez.#: [id number] Admission: 09/05/19 Attend Phys: Hair Townsend MD Discharge: Date of : 68 Report #: [id number] THIS REPORT FOR: cc: Cecilio Munson MD,Cecilio Townsend,Hair Jackson MD ~ CC: Hair Munson MD DATE OF SERVICE: 09/05/2019 CHIEF COMPLAINT: Low back pain and leg pain. HISTORY: The patient is a 49-year-old gentleman who has been followed in the Pain Clinic because of chronic back pain. He continues to have pain that radiates down into his legs. He describes his pain as a 5/10 today. He has returned to the Pain Clinic for renewal of his medication. He has been having some atrial fibrillation. He has not seen his business liaison officer. His father has a history of atrial fibrillation. He did try some of his father's medications and felt better. He moves his son to [facility] this week. ALLERGIES: PENICILLIN. CURRENT MEDICATIONS: Oxycodone 10/325, tizanidine 4 mg, gabapentin, amitriptyline, metoprolol, Flonase, and Yvette. PAIN CLINIC ASSESSMENT/PQRS: 1. The patient has some osteoarthritic pain involving his right knee. He is not being treated for rheumatoid arthritis. 2. Height 5 feet 9 inches, weight 219 pounds, BMI is 32.3. 3. Vital Signs: Blood pressure 152/99, pulse 63, respiratory rate 16, room air saturation is 97%. 4. Pain intensity, 5/10. 5. Fall history: The patient has not fallen. 6. Blood thinner. The patient is not on a blood thinning medication. 7. Hypertension. The patient is being treated for hypertension. 8. Opioids greater than 6 weeks. 9. Risk assessment tool, high at 15. 10. Functional assessment tool, . 11. Recreational drugs. The patient denies. 12. Tobacco: The patient has never smoked. 13. Alcohol: The patient denies use of alcoholic beverages. PHYSICAL EXAMINATION: GENERAL: The patient is a well-developed, well-nourished white male. [address] [address] PAIN MANAGEMENT CONSULTATION Name: BILL RICKETTS Room #: REG JANAE Jennifer.#: [id number] Admission: 09/05/19 Attend Phys: Hair Townsend MD Discharge: Date of : 68 Report #: [id number] his stated age. He is alert and oriented x 3. His affect is appropriate. Speech is fluent. HEENT: Normocephalic, atraumatic. Extraocular eye muscles intact. Sclerae nonicteric. Mucous membranes are moist. The patient has somewhat of a disconjugate gaze. This has always been there. NECK: Without adenopathy or JVD. LUNGS: Clear to auscultation. ABDOMEN: Nontender. EXTREMITIES: Upper extremity muscle strength is judged to be 5/5 for the major muscle groups in the upper extremity. The patient is without significant scoliosis, kyphosis or lordosis. The patient has pain and discomfort involving his L4-L5 dermatomal area. Does walk with slight antalgic gait. Complains of some pain and discomfort in the low back area. IMPRESSION: 1. Lumbar radicular history at L4-L5 and L5-S1 dermatomal distribution. 2. Osteoarthritis with previous knee surgeries on the right. 3. Chronic pain with high risk medications using opioids. RECOMMENDATIONS: We discussed treatment options with the patient. Risks and benefits of the medications again were discussed. The patient is taking his medications as prescribed. States that these medications are beneficial. He is still somewhat stressed. He continues to try and find a job. He has a new prospect. He hopes that in the near future. 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 A script for his medications has been written. They have been forwarded to his pharmacy. He will continue with Percocet 10 mg one p.o. q 4-6 hours. He will continue with cetirizine 10 mg, Flonase 0.5% nasal spray, metoprolol 25 mg, 50 total, and oxycodone 10 mg one p.o. q. 6 hours p.r.n. for pain. The patient has been provided Zanaflex 4 mg 1 p.o. t.i.d. for spasms. He will continue with gabapentin 300 mg 1 p.o. t.i.d. The patient will also use Elavil 75 mg 1 p.o. at bedtime. He will call us if he has any concerns. We would like to thank you for letting us participate in his care. We hope he continues to improve. By: [id number] Hair Townsend MD /samantha
[2019-09-05 08:36] VITALS: BP 152/99
--- NOTE | 2019-09-05 08:51 | NUR ---
Pain Clinic Assessment: 1. History of Osteoarthritis: RIGHT KNEE History of Rheumatoid Arthritis: Not Applicable 2. Height: 5 ft. 9 in. 175.3 cm. Weight: 219.0 lb. oz. 99.338 kg. Patient's BMI: 32.3 3. Vital Signs: BP: 152/99 Pulse: 63 Resp: 16 Temp: 02 Sat: 97 ECG Mon: 4. Pain Intensity: 5 5. Fall Risk: Dizziness: N Needs help standing or walking: N Fallen in the last 3 months: N Fall risk comments: 6. Patient on Blood Thinner: None 7. History of Hypertension: Y 8. Opioid Therapy greater than 6 weeks: Y Opiate Contract Signed: 12/26/17 9. Risk Assessment Tool Provided: high-15 10. Functional Assessment Tool: 11. Recreational Drug Use: Never Drug Type: Tobacco Use: Never Smoker Tobacco Type: Amount or Packs/day: How Many Years: Alcohol Use: No Frequency: Quant:
== END ==
LOC: PAIN 06:55
DX: M17.11 Unilateral primary osteoarthritis, right knee (principal); M54.5 Low back pain; M79.606 Pain in leg, unspecified; I10 Essential (primary) hypertension; F11.90 Opioid use, unspecified, uncomplicated; Z88.0 Allergy status to penicillin

== ENCOUNTER → 2019-10-01 | Outpatient (CLI) | payer OTHER ==
[~2019-10-01] VITALS: Ht 175.3 cm; Wt 96.4 kg
[2019-10-01 08:04] VITALS: BP 152/96
--- NOTE | 2019-10-01 08:11 | NUR ---
Pain Clinic Assessment: 1. History of Osteoarthritis: RIGHT KNEE History of Rheumatoid Arthritis: Not Applicable 2. Height: 5 ft. 9 in. 175.3 cm. Weight: 212.6 lb. oz. 96.435 kg. Patient's BMI: 31.4 3. Vital Signs: BP: 152/96 Pulse: 87 Resp: 18 Temp: 02 Sat: 99 ECG Mon: 4. Pain Intensity: 3 5. Fall Risk: Dizziness: N Needs help standing or walking: N Fallen in the last 3 months: N Fall risk comments: 6. Patient on Blood Thinner: None 7. History of Hypertension: Y 8. Opioid Therapy greater than 6 weeks: Y Opiate Contract Signed: 12/26/17 9. Risk Assessment Tool Provided: high-15 10. Functional Assessment Tool: 11. Recreational Drug Use: Never Drug Type: Tobacco Use: Never Smoker Tobacco Type: Amount or Packs/day: How Many Years: Alcohol Use: No Frequency: Quant:
--- NOTE | 2019-10-08 16:00 | HPC ---
[facility] [address] [address] PAIN MANAGEMENT CONSULTATION Name: BILL RICKETTS Room #: REG JANAE Rodriguez.#: [id number] Admission: 10/01/19 Attend Phys: Hair Townsend MD Discharge: Date of : 68 Report #: [id number] THIS REPORT FOR: cc: Cecilio Munson MD,Cecilio Townsend,Hair Jackson MD ~ CC: Hair Munson DATE OF SERVICE: 10/01/2019 FOLLOWUP COMPLAINT: I found a new job. I have lost about 7 pounds. HISTORY: The patient is a 49-year-old gentleman who has been followed in the pain clinic for some time. He has chronic pain involving his low back area. He has pain that radiates down into his legs. He rates the pain as a 3/10 today. He has been more active. He is trying to lose weight. He has found a new job. He states that he will be traveling a bit with this new job. He has been working to lose weight, so that he can buy smaller clothing/suits. ALLERGIES: PENICILLIN. CURRENT MEDICATIONS: Hydrocodone 10/325, tizanidine 4 mg, gabapentin, amitriptyline, metoprolol, Flonase, Yvette. PAIN CLINIC ASSESSMENT AND PQRS: 1. The patient has some osteoarthritic changes involving his right knee. He is not being treated for rheumatoid arthritis. 2. Height 5 feet 9 inches, weight 212 pounds, BMI is 152/96, pulse 87, respiratory rate 18, room air saturation 99%. 3. Pain intensity 06/16. 4. Fall history: The patient has not fallen in the last 3 months. 5. Blood thinner. The patient is not on a blood thinning medication. 6. Hypertension. The patient is being treated for hypertension. 7. Opioids. The patient received medication from the pain clinic. 8. Risk assessment tool ? high for opioid use. 9. Functional assessment tool is . 10. Recreational drug use. The patient denies. 11. Tobacco: The patient denies. 12. Alcohol. The patient denies frequent use of alcoholic beverages. PHYSICAL EXAMINATION: GENERAL: The patient is a well-developed, well-nourished white male. Appears his stated age. He is alert and oriented x 3. His affect is appropriate. He is energized and that he has found a job. His affect is elevated. Speech is fluent. [address] [address] PAIN MANAGEMENT CONSULTATION Name: BILL RICKETTS [id number] Admission: 10/01/19 Attend Phys: Hair Townsend MD Discharge: Date of : 68 Report #: [id number] HEENT: Normocephalic, atraumatic. Extraocular eye muscles intact. Sclerae nonicteric. Mucous membranes are moist. The patient has a somewhat disconjugate gaze. This has been present throughout his visits. The patient is wearing a mask. NECK: Without adenopathy or JVD. LUNGS: Generally clear to auscultation. HEART: Regular rate. History of atrial fibrillation. ABDOMEN: Nontender. EXTREMITIES: Upper extremity muscle strength judged to be 5/5 for the major muscle groups in the upper extremity. The patient without significant scoliosis, kyphosis or lordosis. The patient does have pain in the L4-L5 dermatomal distribution. He walks with a slight antalgic gait. IMPRESSION: 1. Lumbar radicular pain, L4-L5 and L5-S1 dermatomal distribution. 2. Osteoarthritis with previous knee surgeries on the right. 3. Chronic pain with high risk medications using opioids. RECOMMENDATIONS: We will continue with the patient's medication. He is quite excited. It has been about a year or greater. Since he has been gainfully employed. He has found a new job. . He feels that it will be helpful and fruitful in the long run. 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 Overall, he feels that he can meet the challenge. A script for his medications of oxycodone 10 mg one p.o. q. 6 hours, total of 75 tablets have been provided. The patient will call us if he has any concerns. We will also continue with Zanaflex 4 mg 1 p.o. t.i.d. for muscle spasms. He will continue with gabapentin 300 mg 1 p.o. t.i.d. He will use Elavil at bedtime. We would like to thank you for letting us participate in his care. We hope he continues to improve. We hope him great success in his new job . <ELECTRONICALLY SIGNED> By: Hair Townsend MD 10/08/19 [id number] Hair Townsend MD /[facility]
== END ==
LOC: PAIN 06:32
PROVIDERS: ATTEND Anesthesiology Pain Medicine
DX: M51.87 Other intervertebral disc disorders, lumbosacral region (principal); M17.11 Unilateral primary osteoarthritis, right knee; F11.20 Opioid dependence, uncomplicated; Z88.0 Allergy status to penicillin; Z96.651 Presence of right artificial knee joint; Z79.899 Other long term (current) drug therapy

== ENCOUNTER → 2019-11-26 | Outpatient (CLI) | payer OTHER ==
[~2019-11-26] VITALS: Ht 175.3 cm; Wt 97.0 kg
[~2019-11-26] MED LIST changes: +LOPRESSOR50 MG PO
[2019-11-26 07:56] VITALS: BP 144/89
--- NOTE | 2019-11-26 08:02 | NUR ---
Pain Clinic Assessment: 1. History of Osteoarthritis: RIGHT KNEE History of Rheumatoid Arthritis: Not Applicable 2. Height: 5 ft. 9 in. 175.3 cm. Weight: 213.8 lb. oz. 96.979 kg. Patient's BMI: 31.6 3. Vital Signs: BP: 144/89 Pulse: 70 Resp: 16 Temp: 02 Sat: 98 ECG Mon: 4. Pain Intensity: 6-7 5. Fall Risk: Dizziness: N Needs help standing or walking: N Fallen in the last 3 months: N Fall risk comments: 6. Patient on Blood Thinner: None 7. History of Hypertension: Y 8. Opioid Therapy greater than 6 weeks: Y Opiate Contract Signed: 12/26/17 9. Risk Assessment Tool Provided: high-15 10. Functional Assessment Tool: 11. Recreational Drug Use: Never Drug Type: Tobacco Use: Never Smoker Tobacco Type: Amount or Packs/day: How Many Years: Alcohol Use: No Frequency: Quant:
--- NOTE | 2019-12-04 13:25 | HPC ---
[facility] [address] [address] PAIN MANAGEMENT CONSULTATION Name: BILL RICKETTS Room #: REG JANAE Rodriguez.#: [id number] Admission: 11/26/19 Attend Phys: Hair Townsend MD Discharge: Date of : 68 Report #: [id number] THIS REPORT FOR: cc: Cecilio Munson MD,Cecilio Townsend,Hair Jackson MD ~ CC: Hair Munson MD DATE OF SERVICE: 11/26/2019 CHIEF COMPLAINT: "I changed jobs." HISTORY: The patient is a 49-year-old gentleman who has been followed in the Pain Clinic because of chronic pain. He has pain in the low back area. Continues to have pain that radiates down into his legs, which can be problematic. Today, he rates his pain as a 6-7. Has pain in the left hip and the anterior area with pain radiating down the lateral portion of his leg. He tried the new job out. He found that the effects of that position were not consistent with his. He now has a new job and is working in [place]. He would like to continue with his medication. They are helpful. He is associated now with [employer]. ALLERGIES: PENICILLIN. CURRENT MEDICATIONS: Hydrocodone 10/325, amitriptyline 75 mg at bedtime, gabapentin 300 mg t.i.d., tizanidine 4 mg t.i.d., Cetirizine 10 mg, Flonase 0.05% nasal spray b.i.d., and metoprolol 50 mg b.i.d. PAIN CLINIC ASSESSMENT/PQRS: 1. The patient has some osteoarthritic changes involving his right knee. He is not being treated for rheumatoid arthritis. 2. Height 5 feet 9 inches, weight 213 pounds, BMI 31. 3. Vital signs: Blood pressure 144/89, pulse 70, respiratory rate 16, room air saturation 98%. 4. Pain intensity, -10/16. 5. Fall history: The patient has not fallen since we saw him last. 6. Blood thinner. The patient is not on a blood thinning medication. 7. Hypertension. The patient is being treated for hypertension. 8. Opioids greater than 6 weeks. The patient receives medication from the Pain Clinic. 9. Risk assessment tool high. 10. Functional assessment tool, . 11. Recreational drug use. The patient denies. 12. Tobacco: The patient has never smoked. [facility] [address] [place] [address] PAIN MANAGEMENT CONSULTATION Name: BILL RICKETTS [facility] [id number] Admission: 11/26/19 Attend Phys: Hair Townsend MD Discharge: Date of : 68 Report #: [id number] 13. Alcohol. The patient denies frequent use of alcoholic beverages. PHYSICAL EXAMINATION: GENERAL: The patient is a well-developed, well-nourished white male. Appears his stated age. He is alert and oriented x 3. His affect is appropriate. Speech is fluent. HEENT: Normocephalic, atraumatic. Extraocular eye muscles intact. Sclerae nonicteric. Mucous membranes are moist. The patient has somewhat disconjugate gaze. This is his baseline. The patient is wearing a face cover. NECK: Without adenopathy or JVD. LUNGS: Generally clear to auscultation. HEART: Regular rate. History of atrial fibrillation. ABDOMEN: Nontender. MUSCULOSKELETAL: Upper extremity muscle strength is judged to be 5-/5 for the major muscle groups in the upper extremity. The patient is without significant scoliosis, kyphosis or lordosis. The patient does have pain and discomfort, which radiates down into his left hip anterior portion with burning down the lateral portion of his leg in the L4-L5 dermatomal distribution. The patient walks with slightly antalgic gait. IMPRESSION: 1. Lumbar radiculopathy with history of L4-L5 as well as L5-S1 dermatomal distribution. 2. Osteoarthritis with previous knee surgeries on the right. 3. Chronic pain with high risk of medications to help control pain. RECOMMENDATIONS: We discussed treatment options with the patient. The patient tried to his new job. He felt that he has a job or not a good fit. He now works for [employer]. He feels that this is a better job at this juncture. He would like to continue with his medications. A script for his medications has been provided. He will continue with amitriptyline 75 mg 1 p.o. at bedtime. He will continue with gabapentin 300 mg t.i.d. The patient will also continue with oxycodone 10 mg one p.o. q. 6 hours p.r.n., total of 75 tablets have been provided. The patient will also continue with Zanaflex 4 mg 1 p.o. t.i.d. We would like to thank you for letting us participate in his care. We hope he continues to improve. <ELECTRONICALLY SIGNED> By: Hair Townsend MD 12/04/19 1325 [id number] [address] Manuel Townsend MD /nt
== END ==
LOC: PAIN 06:48
PROVIDERS: ATTEND Anesthesiology Pain Medicine
DX: G89.29 Other chronic pain (principal); M17.11 Unilateral primary osteoarthritis, right knee; Z88.0 Allergy status to penicillin; Z68.31 Body mass index [BMI] 31.0-31.9, adult; Z98.890 Other specified postprocedural states; Z79.891 Long term (current) use of opiate analgesic; Z79.899 Other long term (current) drug therapy

== ENCOUNTER → 2020-01-09 | Outpatient (CLI) | payer OTHER ==
[~2020-01-09] VITALS: Ht 175.3 cm; Wt 94.5 kg
[~2020-01-09] MED LIST changes: +[UNRECOGNIZED DRUG - REMARK]
--- NOTE | ~2020-01-09 | HPC ---
[facility] [place] [address] PAIN MANAGEMENT CONSULTATION Name: BILL RICKETTS Room #: REG JANAE EmersonKirk.#: [id number] Admission: 01/09/20 Attend Phys: Hair Townsend MD Discharge: Date of : 68 Report #: [id number] CC: Hair Munson DATE OF SERVICE: 01/09/2020 PRIMARY CARE PHYSICIAN: Cecilio Munson MD CHIEF COMPLAINT: Here for medication renewal. HISTORY: The patient is a 49-year-old gentleman who has been followed in the pain clinic because of chronic back and leg pain. He has had back surgery in the past. Continues to have pain, which is problematic. It involves left hip, left leg and down into his foot. He describes it as a deep aching discomfort. Rates it as a 5/10. Notes that standing for a prolonged period of time worsens the pain. Workouts and lifting, mowing lawn, prolonged walking all exacerbate his discomfort. Feels his medications are helpful. He would like to continue their use. He does not have any complications. He is able to think clearly with his current medical regimen. He is not having any clouding of his sensorium. ALLERGIES: PENICILLIN. CURRENT MEDICATIONS: Hydrocodone 10/325, amitriptyline 75 mg at bedtime, gabapentin 300 mg t.i.d., tizanidine 4 mg t.i.d., cetirizine 10 mg, Flonase 0.5% nasal spray b.i.d., metoprolol 50 mg b.i.d. PAIN CLINIC ASSESSMENT AND PQRS: 1. The patient has some osteoarthritic changes in his right knee. He is not being treated for rheumatoid arthritis. 2. Height 5 feet 9 inches, weight 208 pounds, BMI is 30. 3. Vital signs: Blood pressure 140/58, pulse 60, respiratory rate 16, room air saturation 98%. 4. Pain intensity 5/10. 5. Fall history: The patient has not fallen in the last 3 months. 6. Blood thinner. The patient is not on a blood thinning medication. 7. Hypertension. The patient is being treated for hypertension. 8. Opioids greater than 6 weeks. The patient received medication from the pain clinic. 9. Risk assessment tool high for opioid use. 10. Functional assessment tool is . 11. Recreational drug use. The patient denies. 12. Tobacco: The patient denies. 13. Alcohol. The patient denies frequent use of alcoholic beverages. PHYSICAL EXAMINATION: GENERAL: The patient is a well-developed, well-nourished white male. Appears his stated age. He is alert and oriented x 3. His affect is appropriate. Speech is fluent. HEENT: Normocephalic, atraumatic. Extraocular eye muscles intact. Sclerae nonicteric. Mucous membranes are moist. The patient has a somewhat disconjugate gaze. This is his baseline. He is wearing a facial covering. NECK: Without adenopathy or JVD. LUNGS: Clear to auscultation. HEART: Regular rate. History of atrial fibrillation. ABDOMEN: Nontender. MUSCULOSKELETAL: Upper extremity muscle strength judged to be 5-/5 for the major muscle groups in the upper extremity. The patient without significant scoliosis, kyphosis or lordosis. The patient continues to have some pain that radiates down in the lower portion of his back in the left area with a burning component in the L4-L5 dermatomal distribution. The patient walks with a slight antalgic gait. IMPRESSION: 1. Lumbar radiculopathy with history of L4-L5 as well as L5-S1 dermatomal distribution. 2. Osteoarthritis with previous knee surgeries on the right. 3. Chronic pain with high risk medications to help control the pain. RECOMMENDATIONS: The patient has returned today for his medications. He is not having any problems with driving. He is able to think clearly. This does not alter his sensorium. He has been working for the [employer] He is considering a job where he would drive a vehicle. Given his past history, he has not shown any problems with difficulties thinking or clouded sensorium. I think he continue to use his medications without causing problems or harm. A script for his medications of amitriptyline 75 mg 1 p.o. at bedtime will continue. He will also continue with gabapentin 300 mg t.i.d. The patient will continue with his pain medication of oxycodone one p.o. q. 4-6 hours p.r.n., a total of 75 tablets have been provided. The patient will also continue with the muscle relaxant, Zanaflex 1 p.o. t.i.d. We would like to thank you for letting us participate in his care. We hope he continues to improve. By: [id number] Hair Townsend MD /ALAN
[2020-01-09 13:23] VITALS: BP 140/58
--- NOTE | 2020-01-09 13:30 | NUR ---
Pain Clinic Assessment: 1. History of Osteoarthritis: RIGHT KNEE History of Rheumatoid Arthritis: Not Applicable 2. Height: 5 ft. 9 in. 175.3 cm. Weight: 208.4 lb. oz. 94.530 kg. Patient's BMI: 30.8 3. Vital Signs: BP: 140/58 Pulse: 60 Resp: 16 Temp: 02 Sat: 98 ECG Mon: 4. Pain Intensity: 5 5. Fall Risk: Dizziness: N Needs help standing or walking: N Fallen in the last 3 months: N Fall risk comments: 6. Patient on Blood Thinner: None 7. History of Hypertension: Y 8. Opioid Therapy greater than 6 weeks: Y Opiate Contract Signed: 12/26/17 9. Risk Assessment Tool Provided: high-15 10. Functional Assessment Tool: 11. Recreational Drug Use: Never Drug Type: Tobacco Use: Never Smoker Tobacco Type: Amount or Packs/day: How Many Years: Alcohol Use: No Frequency: Quant:
== END ==
LOC: PAIN 07:00
PROVIDERS: ATTEND Anesthesiology Pain Medicine
DX: M54.16 Radiculopathy, lumbar region (principal); G89.29 Other chronic pain; M19.90 Unspecified osteoarthritis, unspecified site; Z79.899 Other long term (current) drug therapy; Z88.8 Allergy status to other drugs, medicaments and biological substances

== ENCOUNTER → 2020-02-27 | Outpatient (CLI) | payer OTHER ==
[~2020-02-27] VITALS: Ht 175.3 cm; Wt 94.8 kg
--- NOTE | ~2020-02-27 | HPC ---
[facility] [place] [address] [address] PAIN MANAGEMENT CONSULTATION Name: BILL RICKETTS Room #: REG JANAE RodriguezJareth#: [id number] Admission: 02/27/20 Attend Phys: Hair Townsend MD Discharge: Date of : 68 Report #: [id number] THIS REPORT FOR: cc: Cecilio Munson MD,Cecilio Townsend,Hair Jackson MD ~ CC: Hair Munson MD DATE OF SERVICE: 02/27/2020 CHIEF COMPLAINT: Here for medication renewal. HISTORY: The patient is a 49-year-old gentleman who has been followed in the Pain Clinic because of chronic pain. He has had back surgery. Continues to have pain, which is problematic. He is now working for [employer]. Because of the increased workload of lifting, bending and loading and unloading his truck, he has noticed an increase in his pain and discomfort. He has returned today for renewal of his medication. He is able to think clearly. He is able to perform his job without problem. He feels that his current medical regimen is helpful. He would like to have continued with the medications. ALLERGIES: PENICILLIN. CURRENT MEDICATIONS: Hydrocodone 10/325, amitriptyline 75 mg at bedtime, gabapentin 300 mg t.i.d., tizanidine 4 mg t.i.d., cetirizine 10 mg, Flonase 0.5% nasal spray, and metoprolol 50 mg b.i.d. PAIN CLINIC ASSESSMENT/PQRS: 1. The patient has some osteoarthritic changes in his right knee. He is not being treated for rheumatoid arthritis. 2. Height 5 feet 9 inches, weight 209 pounds, BMI is 30. 3. Vital signs: Blood pressure 145/60, pulse 62, respiratory rate 16, and room air saturation 98%. 4. Pain intensity, 6/10. 5. Fall history: The patient has not fallen in the last 3 months. 6. Blood thinner. The patient is not on a blood thinning medication. 7. Hypertension. The patient is being treated for hypertension. 8. Opioids greater than 6 weeks. The patient receives medication from the Pain Clinic. 9. Risk assessment tool high for opioid use. 10. Functional assessment tool, . 11. Recreational drug use: The patient denies. 12. Tobacco: The patient denies. 13. Alcohol. The patient denies frequent use of alcoholic beverages. [facility] [address] [place] [address] PAIN MANAGEMENT CONSULTATION Name: BILL RICKETTS Room #: REG CLI [facility]#: [id number] Admission: 02/27/20 Attend Phys: Hair Townsend MD Discharge: Date of : 68 Report #: [id number] PHYSICAL EXAMINATION: GENERAL: The patient is a well-developed, well-nourished white male. Appears his stated age. He is alert and oriented x 3. His affect is appropriate. Speech is fluent. HEENT: Normocephalic, atraumatic. Extraocular eye muscles intact. Sclerae nonicteric. Mucous membranes are moist. The patient is at his baseline. He is wearing a facial covering. Has a baseline disconjugate gaze. NECK: Without adenopathy or JVD. LUNGS: Clear to auscultation. HEART: Regular rate. History of atrial fibrillation. ABDOMEN: Nontender. MUSCULOSKELETAL: Upper extremity muscle strength is judged to be 5-/5 for the major muscle groups in the upper extremity. The patient is without significant scoliosis, kyphosis or lordosis. The patient continues to have pain that radiates down the lower portion of his back and into the L4-L5 dermatomal distribution with some burning discomfort. The patient has a slight antalgic walk. IMPRESSION: 1. Lumbar radiculopathy with history of L4-L5 as well as L5-S1 dermatomal pain. 2. Osteoarthritis with previous knee surgeries on the right. 3. Chronic pain and high risk medications on medical management under contract. RECOMMENDATIONS: We discussed treatment options with the patient. At this juncture, we will continue with his medications. He feels he is thinking clearly. He is not affected by the use of his medications. He continues to work for [employer]. 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 This has increased pain and discomfort, which he has been experiencing. We will continue with his medications of amitriptyline 75 mg 1 p.o. at bedtime. The patient will also continue with gabapentin 300 mg t.i.d. The patient will use OxyContin 1 tablet p.o. q. 4-6 hours, total of 75 tablets have been provided. The patient will also continue with muscle relaxant, Zanaflex. Should he note any problems with his medications, he will stop taking these medications given that he is driving for [employer]. We would like to thank you for letting us participate in his care. We hope he continues to improve. By: [id number] Hair Townsend MD /samantha
[2020-02-27 08:32] VITALS: BP 151/96
--- NOTE | 2020-02-27 08:36 | NUR ---
Pain Clinic Assessment: 1. History of Osteoarthritis: RIGHT KNEE History of Rheumatoid Arthritis: Not Applicable 2. Height: 5 ft. 9 in. 175.3 cm. Weight: 209.0 lb. oz. 94.802 kg. Patient's BMI: 30.8 3. Vital Signs: BP: 151/96 Pulse: 74 Resp: 18 Temp: 02 Sat: 99 ECG Mon: 4. Pain Intensity: 6 5. Fall Risk: Dizziness: N Needs help standing or walking: N Fallen in the last 3 months: N Fall risk comments: 6. Patient on Blood Thinner: None 7. History of Hypertension: Y 8. Opioid Therapy greater than 6 weeks: Y Opiate Contract Signed: 12/26/17 9. Risk Assessment Tool Provided: high-15 10. Functional Assessment Tool: 11. Recreational Drug Use: Never Drug Type: Tobacco Use: Never Smoker Tobacco Type: Amount or Packs/day: How Many Years: Alcohol Use: No Frequency: Quant:
== END ==
LOC: PAIN 06:55
PROVIDERS: ATTEND Anesthesiology Pain Medicine
DX: G89.29 Other chronic pain (principal); Z76.0 Encounter for issue of repeat prescription; M54.16 Radiculopathy, lumbar region; M17.11 Unilateral primary osteoarthritis, right knee; F11.20 Opioid dependence, uncomplicated; Z88.0 Allergy status to penicillin; Z79.899 Other long term (current) drug therapy

== ENCOUNTER → 2020-03-26 | Outpatient (CLI) | payer OTHER | LOC: PAIN 14:00 | PROVIDERS: ATTEND Anesthesiology Pain Medicine | DX: M54.17 Radiculopathy, lumbosacral region (principal); M54.16 Radiculopathy, lumbar region; M17.0 Bilateral primary osteoarthritis of knee; G89.29 Other chronic pain; Z79.899 Other long term (current) drug therapy; Z79.891 Long term (current) use of opiate analgesic ==

== ENCOUNTER → 2020-04-23 | Outpatient (CLI) | payer OTHER ==
[~2020-04-23] VITALS: Ht 175.3 cm; Wt 91.7 kg
[2020-04-23 08:13] VITALS: BP 140/82
--- NOTE | 2020-04-23 08:16 | NUR ---
Pain Clinic Assessment: 1. History of Osteoarthritis: RIGHT KNEE History of Rheumatoid Arthritis: Not Applicable 2. Height: 5 ft. 9 in. 175.3 cm. Weight: 202.2 lb. oz. 91.717 kg. Patient's BMI: 29.8 3. Vital Signs: BP: 140/82 Pulse: 60 Resp: 18 Temp: 02 Sat: 95 ECG Mon: 4. Pain Intensity: 4 5. Fall Risk: Dizziness: N Needs help standing or walking: N Fallen in the last 3 months: N Fall risk comments: 6. Patient on Blood Thinner: None 7. History of Hypertension: Y 8. Opioid Therapy greater than 6 weeks: Y Opiate Contract Signed: 12/26/17 9. Risk Assessment Tool Provided: high-15 10. Functional Assessment Tool: 11. Recreational Drug Use: Never Drug Type: Tobacco Use: Never Smoker Tobacco Type: Amount or Packs/day: How Many Years: Alcohol Use: No Frequency: Quant:
== END ==
LOC: PAIN 06:54
PROVIDERS: ATTEND Anesthesiology Pain Medicine
DX: Z76.0 Encounter for issue of repeat prescription (principal); M54.16 Radiculopathy, lumbar region; G89.29 Other chronic pain; Z79.891 Long term (current) use of opiate analgesic

== ENCOUNTER → 2020-05-21 | Outpatient (CLI) | payer OTHER ==
--- NOTE | 2020-05-21 11:08 | HPC ---
[facility] [place] [address] PAIN MANAGEMENT CONSULTATION Name: BILL RICKETTS Room #: REG JANAE Rodriguez.#: [id number] Admission: 05/21/20 Attend Phys: Luzmaira Cuello Discharge: Date of : 68 Report #: [id number] THIS REPORT FOR: cc: Cecilio Munson MD,Cecilio Cuello,Luzmaria VALVERDE ~ DATE OF SERVICE: 05/21/2020 CHIEF COMPLAINT: Low back pain, left hip pain. This is a telemedicine appointment that I am speaking with the patient via the telephone from 8:15-8:32. The patient has consented for. HISTORY OF PRESENT ILLNESS: This is a 49-year-old gentleman who is a longstanding patient of the pain clinic, today I am speaking with him for a telemedicine appointment. He is rating his pain today 4 to 5, mostly located in his low back that does radiate into his left hip and down to his left foot. He reports a burning, stinging sensation that is worse with prolonged activity. He is working as a bus driver school. He said at times during the day when he is active, his pain is better, but then other times, activity does make his pain worse. He tries to limit his oral pain medicines during the day when he is driving and then takes his medications after work and then in the evening and feels they are very beneficial in controlling his pain. He denies any significant constipation that is not managed with [id number] medications. Today, he would like to refill his oxycodone. ALLERGIES: PENICILLIN. CURRENT LIST OF MEDICATIONS: Flonase, metoprolol, amitriptyline, gabapentin, oxycodone, tizanidine. PATIENT'S PQRS: We are not doing vital signs or height and weight due to a Telemed appointment. The patient has history of osteoarthritis in his lower back. Denies any rheumatoid arthritis. Pain is 4-5/10. He has not fallen in the last 3 months. He does not use any assistance for ambulation. He is not on a blood thinner or he is being treated for hypertension. His opioid therapy is greater than 6 weeks; therefore, an opioid signed contract is on the chart. Risk assessment is high. Functional score is 9/70. He does not use illegal drugs. He does not smoke and occasionally uses alcohol. According to the prescription monitoring system, the patient is filling appropriately. His morphine mEq is 60 MME per day. He did fill on 04/23 and is due to fill his medications this weekend. There is a drug screen on the chart that is appropriate for his medications. EVIEW OF SYSTEMS: He is alert and oriented, answering all my questions [address] [address] PAIN MANAGEMENT CONSULTATION Name: BILL RICKETTS Room #: JERRY Okeefe#: [id number] Admission: 05/21/20 Attend Phys: Luzmaria Cuello Discharge: Date of : 68 Report #: [id number] appropriately on the telephone today, rating his pain located in his lower back that radiates down his left leg following the L4-L5, L5-1 distribution. IMPRESSION: 1. Lumbar radiculopathy, L4-L5, L5-1 dermatomal distribution. 2. Osteoarthritis involving his knees and back. 3. Chronic pain with opioid medication management under written agreement. PLAN: 1. We discussed treatment options with the patient today. At this time, we will continue him on his Percocet 10/325, #100. The patient takes these sparingly during the day while he is driving and is very careful. He is not needing his amitriptyline, gabapentin or tizanidine refill today. 2. The patient did discuss having a telemedicine next appointment. I explained to him that we will need to see him in physical appointment next time and appointment made for [address] Townsend. At that time, we will discuss ongoing telemedicine appointments. 3. The patient's care discussed with Dr. Javier Townsend today in collaboration. <ELECTRONICALLY SIGNED> By: Luzmaria Cuello 05/21/20 1108 [id number] [id number] Luzmaria Cuello /samantha
== END ==
LOC: TELEPC 07:39 → PAIN 14:05
PROVIDERS: ATTEND Clinical Nurse Specialist Adult Health
DX: G89.29 Other chronic pain (principal); M54.16 Radiculopathy, lumbar region; M17.0 Bilateral primary osteoarthritis of knee; Z88.0 Allergy status to penicillin; Z79.891 Long term (current) use of opiate analgesic; Z79.899 Other long term (current) drug therapy

== ENCOUNTER → 2020-06-18 | Outpatient (CLI) | payer OTHER ==
[~2020-06-18] VITALS: Ht 172.7 cm; Wt 93.0 kg
[~2020-06-18] MED LIST changes: +[UNRECOGNIZED DRUG - REMARK]
[2020-06-18 08:04] VITALS: BP 158/90
--- NOTE | 2020-06-18 08:07 | NUR ---
Pain Clinic Assessment: 1. History of Osteoarthritis: RIGHT KNEE History of Rheumatoid Arthritis: Not Applicable 2. Height: 5 ft. 8 in. 172.7 cm. Weight: 205.0 lb. oz. 92.988 kg. Patient's BMI: 31.2 3. Vital Signs: BP: 158/90 Pulse: 62 Resp: 14 Temp: 02 Sat: 99 ECG Mon: 4. Pain Intensity: 3-4 5. Fall Risk: Dizziness: N Needs help standing or walking: N Fallen in the last 3 months: N Fall risk comments: 6. Patient on Blood Thinner: None 7. History of Hypertension: Y 8. Opioid Therapy greater than 6 weeks: Y Opiate Contract Signed: 12/26/17 9. Risk Assessment Tool Provided: high-15 10. Functional Assessment Tool: 11. Recreational Drug Use: Never Drug Type: Tobacco Use: Never Smoker Tobacco Type: Amount or Packs/day: How Many Years: Alcohol Use: No Frequency: Quant:
== END ==
LOC: PAIN 06:45
PROVIDERS: ATTEND Anesthesiology Pain Medicine
DX: M54.16 Radiculopathy, lumbar region (principal); M17.11 Unilateral primary osteoarthritis, right knee; F11.20 Opioid dependence, uncomplicated; G89.29 Other chronic pain; Z88.8 Allergy status to other drugs, medicaments and biological substances; Z79.899 Other long term (current) drug therapy

== ENCOUNTER → 2020-07-16 | Outpatient (CLI) | payer BC ==
--- NOTE | 2020-07-20 08:38 | HPC ---
[facility] [place] [address] PAIN MANAGEMENT CONSULTATION Name: BILL RICKETTS Room #: REG JANAE Jennifer.#: [id number] Admission: 07/16/20 Attend Phys: Luzmaria Cuello Discharge: Date of : 68 Report #: [id number] THIS REPORT FOR: cc: Cecilio Munson MD,Cecilio Cuello,Luzmaria VALVERDE ~ DATE OF SERVICE: 07/16/2020 CHIEF COMPLAINT: Low back pain and left hip pain. HISTORY OF PRESENT ILLNESS: This is a Telemed appointment that I am speaking via the telephone from 810 to 825 that the patient has consented for. This is a 50-year-old gentleman who today is reporting a pain score of 5/10, most significantly in his left hip; states that it is a burning sensation, especially with prolonged walking. He does work for [employer] now and certain routes do increase his pain significantly due to the extent of walking he needs to do each day. He does report that his low back is feeling quite well today, though he has not started work. Overall, he believes his current regimen of oxycodone is beneficial, though he is requesting a Medrol Dosepak today. He reports he is having a significant flare due to the amount of walking and finds those beneficial. According to our records, his last Medrol Dosepak was in February. I believe this may be warranted to offer this to him to decrease his inflammation. The patient denies any constipation issues as a result of his medications. The patient reports that he now is covered by insurance through his job, he will be able to have a mail off pharmacy for his adjunct medications. He will work in the next few weeks to get this set up at his next appointment. He would like his amitriptyline, gabapentin and tizanidine sent to his mail off pharmacy where he will have no co-pays. He is not needing any of those medications today. ALLERGIES: PENICILLIN. CURRENT LIST OF MEDICATIONS: Oxycodone 10/325, tizanidine, gabapentin, amitriptyline, metoprolol, Flonase and allergy medicine. PQRS: 1. The patient has a history of osteoarthritis in his knees and spine. Denies any rheumatoid arthritis. 2. Height is 5 feet 8 inches, weight is 205, BMI is 31. 3. Vital signs 158/90, pulse is 62, respirations 14, oxygen sat is 99%. 4. Pain score is 3-4. 5. Denies dizziness, does not need help walking or standing, has not fallen in the last 3 months. 6. The patient is not on any blood thinners, but does have a history of [facility] [address] [place] [address] PAIN MANAGEMENT CONSULTATION Name: BLIL RICKETTS Room #: REG JANAE Okeefe#: [id number] Admission: 07/16/20 Attend Phys: Luzmaria Cuello Discharge: Date of : 68 Report #: [id number] hypertension. 7. Opioid therapy is greater than 6 weeks; therefore, an opioid signed contract is on the chart. Risk assessment is high. Functional assessment is . 8. Recreational drug use, he denies. He is not a smoker and does not drink alcohol. According to the prescription monitoring system, the patient is filling appropriately in a timely fashion. He is due to fill his medications today. His morphine milliequivalent is 60 MMEs according to the CDC guidelines. There is a drug screen on the chart that is appropriate as well. We will check this again in the near future. PHYSICAL EXAMINATION: This is a review of systems due to a Telemed appointment. This is alert and orientated 50-year-old gentleman who reports his pain score a 5/10 today in his left hip with a burning sensation down his leg. He denies back pain currently today. IMPRESSION: 1. Lumbar radiculopathy with a history of L4-L5 radiculopathy. 2. Osteoarthritis involving his knees. 3. Chronic pain. 4. Opioid medication management under written agreement. PLAN: 1. We discussed treatment options with the patient today. The patient feels the Percocet is very beneficial allowing him to be as active as he is able, especially with his new job working several long hours a day and walking multiple miles in a day. He has had a recent flare. He is wondering if we may send a Medrol Dosepak. I believe that is warranted and will be beneficial in decreasing some of his pain due to this flare. He has not had one since February. We do want to watch how much steroid exposure that he has. 2. We will have Dr. Javier Townsend send his Percocet #100 to his pharmacy and I will send his Medrol Dosepak. 3. He is not needing his gabapentin, amitriptyline, or tizanidine. We will send these electronically to his mail off pharmacy at his next visit after he has that information set up due to now having insurance coverage. 4. The patient encouraged to make an appointment to see Dr. Townsend or myself in the clinic at his next appointment, we will make arrangements for him to come before working hours. The patient is agreeable with that. Time spent with the patient in consultation, reviewing recent studies, clinical notes and physician reports 15 minutes. Time spent in preparation for appointment, reviewing prescription monitoring reports, reviewing previous records and previous treatment options, and reviewing current medications 5 minutes. [facility] [address] [place] [address] PAIN MANAGEMENT CONSULTATION Name: BILL RICKETTS Room #: REG JANAE Okeefe#: [id number] Admission: 07/16/20 Attend Phys: Luzmaria Cuello Discharge: Date of : 68 Report #: [id number] Time spent preparing and sending electronic prescriptions with collaborating physician and documentation of visit and treatment plan 4 minutes. So, total time 24 minutes. <ELECTRONICALLY SIGNED> By: Luzmaria Cuello 07/20/20 0838 [id number] [id number] Luzmaria Cuello /nt
== END ==
LOC: TELEPC 06:52 → PAIN 06:52
PROVIDERS: ATTEND Clinical Nurse Specialist Adult Health
DX: M54.16 Radiculopathy, lumbar region (principal); M17.0 Bilateral primary osteoarthritis of knee; G89.29 Other chronic pain; Z79.891 Long term (current) use of opiate analgesic

== ENCOUNTER → 2020-08-13 | Outpatient (CLI) | payer BC ==
[~2020-08-13] VITALS: Ht 172.7 cm; Wt 92.9 kg
[2020-08-13 07:44] VITALS: BP 142/83
--- NOTE | 2020-08-13 07:48 | NUR ---
Pain Clinic Assessment: 1. History of Osteoarthritis: RIGHT KNEE History of Rheumatoid Arthritis: Not Applicable 2. Height: 5 ft. 8 in. 172.7 cm. Weight: 204.8 lb. oz. 92.897 kg. Patient's BMI: 31.1 3. Vital Signs: BP: 142/83 Pulse: 67 Resp: 18 Temp: 02 Sat: 98 ECG Mon: 4. Pain Intensity: 4 5. Fall Risk: Dizziness: N Needs help standing or walking: N Fallen in the last 3 months: N Fall risk comments: 6. Patient on Blood Thinner: None 7. History of Hypertension: Y 8. Opioid Therapy greater than 6 weeks: Y Opiate Contract Signed: 12/26/17 9. Risk Assessment Tool Provided: high-15 10. Functional Assessment Tool: 11. Recreational Drug Use: Never Drug Type: Tobacco Use: Never Smoker Tobacco Type: Amount or Packs/day: How Many Years: Alcohol Use: No Frequency: Quant:
== END ==
LOC: PAIN 07:04
PROVIDERS: ATTEND Clinical Nurse Specialist Adult Health
DX: M54.17 Radiculopathy, lumbosacral region (principal); M19.90 Unspecified osteoarthritis, unspecified site; G89.29 Other chronic pain; F11.20 Opioid dependence, uncomplicated; Z88.8 Allergy status to other drugs, medicaments and biological substances; Z79.899 Other long term (current) drug therapy

== ENCOUNTER → 2020-09-10 | Outpatient (CLI) | payer BC ==
[~2020-09-10] VITALS: Ht 172.7 cm; Wt 92.9 kg
[~2020-09-10] MED LIST changes: +PERCOCET 10-321 EAC1 PO
[2020-09-10 07:52] VITALS: BP 157/88
--- NOTE | 2020-09-10 07:57 | NUR ---
Pain Clinic Assessment: 1. History of Osteoarthritis: RIGHT KNEE History of Rheumatoid Arthritis: Not Applicable 2. Height: 5 ft. 8 in. 172.7 cm. Weight: 204.8 lb. oz. 92.897 kg. Patient's BMI: 31.1 3. Vital Signs: BP: 157/88 Pulse: 73 Resp: Temp: 02 Sat: 98 ECG Mon: 4. Pain Intensity: 5 5. Fall Risk: Dizziness: N Needs help standing or walking: N Fallen in the last 3 months: N Fall risk comments: 6. Patient on Blood Thinner: None 7. History of Hypertension: Y 8. Opioid Therapy greater than 6 weeks: Y Opiate Contract Signed: 12/26/17 9. Risk Assessment Tool Provided: high-15 10. Functional Assessment Tool: 11. Recreational Drug Use: Never Drug Type: Tobacco Use: Never Smoker Tobacco Type: Amount or Packs/day: How Many Years: Alcohol Use: No Frequency: Quant:
--- NOTE | 2020-09-10 09:09 | NUR ---
Pain Clinic Assessment: 1. History of Osteoarthritis: RIGHT KNEE History of Rheumatoid Arthritis: Not Applicable 2. Height: 5 ft. 8 in. 172.7 cm. Weight: 204.8 lb. oz. 92.897 kg. Patient's BMI: 31.1 3. Vital Signs: BP: 157/88 Pulse: 73 Resp: Temp: 02 Sat: 98 ECG Mon: 4. Pain Intensity: 5 5. Fall Risk: Dizziness: N Needs help standing or walking: N Fallen in the last 3 months: N Fall risk comments: 6. Patient on Blood Thinner: None 7. History of Hypertension: Y 8. Opioid Therapy greater than 6 weeks: Y Opiate Contract Signed: 12/26/17 9. Risk Assessment Tool Provided: high-15 10. Functional Assessment Tool: 11. Recreational Drug Use: Current within past 3 mos Drug Type: KRATOM Tobacco Use: Current Every Day Smoker Tobacco Type: E-Cigarettes Amount or Packs/day: How Many Years: Alcohol Use: No Frequency: Quant:
== END ==
LOC: PAIN 07:05
PROVIDERS: ATTEND Clinical Nurse Specialist Adult Health
DX: G89.29 Other chronic pain (principal); M54.16 Radiculopathy, lumbar region; M19.90 Unspecified osteoarthritis, unspecified site; M17.11 Unilateral primary osteoarthritis, right knee; M79.605 Pain in left leg; Z88.0 Allergy status to penicillin; Z79.891 Long term (current) use of opiate analgesic; Z79.899 Other long term (current) drug therapy

== ENCOUNTER → 2020-10-08 | Outpatient (CLI) | payer BC ==
[~2020-10-08] VITALS: Ht 172.7 cm; Wt 91.6 kg
[2020-10-08 08:09] VITALS: BP 152/85
--- NOTE | 2020-10-08 08:14 | NUR ---
Pain Clinic Assessment: 1. History of Osteoarthritis: RIGHT KNEE History of Rheumatoid Arthritis: Not Applicable 2. Height: 5 ft. 8 in. 172.7 cm. Weight: 202.0 lb. oz. 91.627 kg. Patient's BMI: 30.7 3. Vital Signs: BP: 152/85 Pulse: 73 Resp: 16 Temp: 02 Sat: 98 ECG Mon: 4. Pain Intensity: 4 5. Fall Risk: Dizziness: N Needs help standing or walking: N Fallen in the last 3 months: N Fall risk comments: 6. Patient on Blood Thinner: None 7. History of Hypertension: Y 8. Opioid Therapy greater than 6 weeks: Y Opiate Contract Signed: 12/26/17 9. Risk Assessment Tool Provided: high-15 10. Functional Assessment Tool: 11. Recreational Drug Use: Current within past 3 mos Drug Type: KRATON Tobacco Use: Current Every Day Smoker Tobacco Type: E-Cigarettes Amount or Packs/day: How Many Years: Alcohol Use: No Frequency: Quant:
== END ==
LOC: PAIN 06:57
PROVIDERS: ATTEND Anesthesiology Pain Medicine
DX: G89.29 Other chronic pain (principal); M54.16 Radiculopathy, lumbar region; I10 Essential (primary) hypertension; M17.11 Unilateral primary osteoarthritis, right knee; M19.90 Unspecified osteoarthritis, unspecified site; F17.200 Nicotine dependence, unspecified, uncomplicated; Z95.0 Presence of cardiac pacemaker; Z98.890 Other specified postprocedural states; Z88.0 Allergy status to penicillin; Z79.891 Long term (current) use of opiate analgesic; Z79.899 Other long term (current) drug therapy

== ENCOUNTER → 2020-11-05 | Outpatient (CLI) | payer BC ==
[~2020-11-05] VITALS: Ht 172.7 cm; Wt 92.7 kg
--- NOTE | 2020-11-05 08:04 | NUR ---
Pain Clinic Assessment: 1. History of Osteoarthritis: RIGHT KNEE History of Rheumatoid Arthritis: Not Applicable 2. Height: ft. in. cm. Weight: lb. oz. kg. Patient's BMI: 3. Vital Signs: BP: Pulse: Resp: Temp: 02 Sat: ECG Mon: 4. Pain Intensity: 4 5. Fall Risk: Dizziness: N Needs help standing or walking: N Fallen in the last 3 months: N Fall risk comments: 6. Patient on Blood Thinner: None 7. History of Hypertension: Y 8. Opioid Therapy greater than 6 weeks: Y Opiate Contract Signed: 12/26/17 9. Risk Assessment Tool Provided: high-15 10. Functional Assessment Tool: 11. Recreational Drug Use: Current within past 3 mos Drug Type: Tobacco Use: Current Every Day Smoker Tobacco Type: E-Cigarettes Amount or Packs/day: How Many Years: Alcohol Use: No Frequency: Quant:
[2020-11-05 08:22] VITALS: BP 141/93
--- NOTE | 2020-11-05 08:23 | NUR ---
Pain Clinic Assessment: 1. History of Osteoarthritis: RIGHT KNEE History of Rheumatoid Arthritis: Not Applicable 2. Height: 5 ft. 8 in. 172.7 cm. Weight: 204.4 lb. oz. 92.715 kg. Patient's BMI: 31.1 3. Vital Signs: BP: 141/93 Pulse: 73 Resp: 16 Temp: 02 Sat: 99 ECG Mon: 4. Pain Intensity: 4 5. Fall Risk: Dizziness: N Needs help standing or walking: N Fallen in the last 3 months: N Fall risk comments: 6. Patient on Blood Thinner: None 7. History of Hypertension: Y 8. Opioid Therapy greater than 6 weeks: Y Opiate Contract Signed: 12/26/17 9. Risk Assessment Tool Provided: high-15 10. Functional Assessment Tool: 11. Recreational Drug Use: Current within past 3 mos Drug Type: Tobacco Use: Current Every Day Smoker Tobacco Type: E-Cigarettes Amount or Packs/day: How Many Years: Alcohol Use: No Frequency: Quant:
== END ==
LOC: PAIN 06:49
PROVIDERS: ATTEND Anesthesiology Pain Medicine
DX: M54.17 Radiculopathy, lumbosacral region (principal); M19.90 Unspecified osteoarthritis, unspecified site; G89.29 Other chronic pain; Z79.891 Long term (current) use of opiate analgesic; Z79.899 Other long term (current) drug therapy

== ENCOUNTER → 2020-12-03 | Outpatient (CLI) | payer BC ==
[~2020-12-03] VITALS: Ht 175.3 cm; Wt 93.0 kg
[~2020-12-03] MED LIST changes: +ASPIRIN EC325 M1 PO
[2020-12-03 08:00] VITALS: BP 148/86
--- NOTE | 2020-12-03 08:09 | NUR ---
Pain Clinic Assessment: 1. History of Osteoarthritis: RIGHT KNEE History of Rheumatoid Arthritis: Not Applicable 2. Height: 5 ft. 9 in. 175.3 cm. Weight: 205.0 lb. oz. 92.988 kg. Patient's BMI: 30.3 3. Vital Signs: BP: 148/86 Pulse: 74 Resp: 14 Temp: 02 Sat: 100 ECG Mon: 4. Pain Intensity: 5 5. Fall Risk: Dizziness: N Needs help standing or walking: N Fallen in the last 3 months: N Fall risk comments: 6. Patient on Blood Thinner: None 7. History of Hypertension: Y 8. Opioid Therapy greater than 6 weeks: Y Opiate Contract Signed: 12/26/17 9. Risk Assessment Tool Provided: high-15 10. Functional Assessment Tool: 11. Recreational Drug Use: Never Drug Type: Tobacco Use: Current Every Day Smoker Tobacco Type: Amount or Packs/day: VAPE How Many Years: Alcohol Use: No Frequency: Quant:
== END ==
LOC: PAIN 06:51
PROVIDERS: ATTEND Anesthesiology Pain Medicine
DX: Z76.0 Encounter for issue of repeat prescription (principal); M54.16 Radiculopathy, lumbar region; M19.90 Unspecified osteoarthritis, unspecified site; G89.29 Other chronic pain; Z79.899 Other long term (current) drug therapy; Z79.891 Long term (current) use of opiate analgesic

== ENCOUNTER → 2020-12-31 | Outpatient (CLI) | payer BC ==
[~2020-12-31] VITALS: Ht 175.3 cm; Wt 93.3 kg
[2020-12-31 08:12] VITALS: BP 141/85
--- NOTE | 2020-12-31 08:15 | NUR ---
Pain Clinic Assessment: 1. History of Osteoarthritis: RIGHT KNEE History of Rheumatoid Arthritis: Not Applicable 2. Height: 5 ft. 9 in. 175.3 cm. Weight: 205.6 lb. oz. 93.260 kg. Patient's BMI: 30.3 3. Vital Signs: BP: 141/85 Pulse: 70 Resp: 18 Temp: 02 Sat: 99 ECG Mon: 4. Pain Intensity: 5 5. Fall Risk: Dizziness: N Needs help standing or walking: N Fallen in the last 3 months: N Fall risk comments: 6. Patient on Blood Thinner: None 7. History of Hypertension: Y 8. Opioid Therapy greater than 6 weeks: Y Opiate Contract Signed: 12/26/17 9. Risk Assessment Tool Provided: high-15 10. Functional Assessment Tool: 11. Recreational Drug Use: Never Drug Type: Tobacco Use: Current Every Day Smoker Tobacco Type: Amount or Packs/day: How Many Years: Alcohol Use: No Frequency: Quant:
== END ==
LOC: PAIN 06:45
PROVIDERS: ATTEND Anesthesiology Pain Medicine
DX: G89.29 Other chronic pain (principal); M17.11 Unilateral primary osteoarthritis, right knee; M54.16 Radiculopathy, lumbar region; M54.17 Radiculopathy, lumbosacral region; Z88.8 Allergy status to other drugs, medicaments and biological substances; Z79.899 Other long term (current) drug therapy; Z79.82 Long term (current) use of aspirin

== ENCOUNTER → 2021-01-26 | Outpatient (CLI) | payer BC ==
[~2021-01-26] VITALS: Ht 175.3 cm; Wt 95.1 kg
[2021-01-26 08:11] VITALS: BP 162/96
--- NOTE | 2021-01-26 08:15 | NUR ---
Pain Clinic Assessment: 1. History of Osteoarthritis: RIGHT KNEE History of Rheumatoid Arthritis: Not Applicable 2. Height: 5 ft. 9 in. 175.3 cm. Weight: 209.6 lb. oz. 95.074 kg. Patient's BMI: 30.9 3. Vital Signs: BP: 162/96 Pulse: 71 Resp: 16 Temp: 02 Sat: 98 ECG Mon: 4. Pain Intensity: 4 5. Fall Risk: Dizziness: N Needs help standing or walking: N Fallen in the last 3 months: N Fall risk comments: 6. Patient on Blood Thinner: None 7. History of Hypertension: Y 8. Opioid Therapy greater than 6 weeks: Y Opiate Contract Signed: 12/26/17 9. Risk Assessment Tool Provided: high-15 10. Functional Assessment Tool: 11. Recreational Drug Use: Never Drug Type: Tobacco Use: Current Every Day Smoker Tobacco Type: Amount or Packs/day: VAPES How Many Years: Alcohol Use: No Frequency: Quant:
== END ==
LOC: PAIN 06:41
PROVIDERS: ATTEND Anesthesiology Pain Medicine
DX: M54.16 Radiculopathy, lumbar region (principal); M54.17 Radiculopathy, lumbosacral region; M17.11 Unilateral primary osteoarthritis, right knee; G89.29 Other chronic pain; Z96.651 Presence of right artificial knee joint; Z95.0 Presence of cardiac pacemaker; Z88.0 Allergy status to penicillin; Z79.899 Other long term (current) drug therapy; Z79.82 Long term (current) use of aspirin

== ENCOUNTER → 2021-02-23 | Outpatient (CLI) | payer BC | LOC: PAIN 08:44 | PROVIDERS: ATTEND Anesthesiology Pain Medicine | DX: G89.29 Other chronic pain (principal); M54.16 Radiculopathy, lumbar region; M17.11 Unilateral primary osteoarthritis, right knee; F17.200 Nicotine dependence, unspecified, uncomplicated; Z95.0 Presence of cardiac pacemaker; Z88.0 Allergy status to penicillin; Z79.899 Other long term (current) drug therapy; Z79.82 Long term (current) use of aspirin ==

== ENCOUNTER → 2021-03-25 | Outpatient (CLI) | payer BC ==
[~2021-03-25] MED LIST changes: +LISINOPRIL20 MG PO
== END ==
LOC: PAIN 03-22 07:42 → TELEPC 07:09
PROVIDERS: ATTEND Anesthesiology Pain Medicine
DX: G89.29 Other chronic pain (principal); M54.16 Radiculopathy, lumbar region; M54.17 Radiculopathy, lumbosacral region; M17.11 Unilateral primary osteoarthritis, right knee; Z88.0 Allergy status to penicillin; Z79.82 Long term (current) use of aspirin; Z79.899 Other long term (current) drug therapy

== ENCOUNTER → 2021-04-20 | Outpatient (CLI) | payer BC ==
[~2021-04-20] VITALS: Ht 175.3 cm; Wt 95.7 kg
[2021-04-20 08:11] VITALS: BP 147/91
--- NOTE | 2021-04-20 08:25 | NUR ---
Pain Clinic Assessment: 1. History of Osteoarthritis: RIGHT KNEE History of Rheumatoid Arthritis: Not Applicable 2. Height: 5 ft. 9 in. 175.3 cm. Weight: 211.0 lb. oz. 95.709 kg. Patient's BMI: 31.1 3. Vital Signs: BP: 147/91 Pulse: 75 Resp: 16 Temp: 02 Sat: 100 ECG Mon: 4. Pain Intensity: 4 TO 5 5. Fall Risk: Dizziness: N Needs help standing or walking: N Fallen in the last 3 months: N Fall risk comments: 6. Patient on Blood Thinner: None 7. History of Hypertension: Y 8. Opioid Therapy greater than 6 weeks: Y Opiate Contract Signed: 12/26/17 9. Risk Assessment Tool Provided: high-15 10. Functional Assessment Tool: 11. Recreational Drug Use: Never Drug Type: Tobacco Use: Current Every Day Smoker Tobacco Type: E-Cigarettes Amount or Packs/day: How Many Years: Alcohol Use: No Frequency: Quant:
== END ==
LOC: PAIN 07:00
PROVIDERS: ATTEND Anesthesiology Pain Medicine
DX: G89.29 Other chronic pain (principal); M54.16 Radiculopathy, lumbar region; M17.12 Unilateral primary osteoarthritis, left knee; Z95.0 Presence of cardiac pacemaker; F17.200 Nicotine dependence, unspecified, uncomplicated; Z88.0 Allergy status to penicillin; Z79.82 Long term (current) use of aspirin; Z79.899 Other long term (current) drug therapy